=== PATIENT | female | born 1990 | race Caucasian/White ===

== ENCOUNTER 2017-11-13 15:19 | Emergency (ER) | payer BC ==
[~2017-11-13] VITALS: Ht 152.4 cm; Wt 89.7 kg
[2017-11-13 15:22] VITALS: TEMP 36.3; Ht 152.4 cm; Wt 89.7 kg
[2017-11-13] MEDS ORDERED: SODIUM CHLORIDE 0.9% 1000ML 1,000 ML IV STA (15:32)
[2017-11-13] MEDS ORDERED: KETOROLAC TROMETHAMINE 30 MG/ML VIAL IV STA (15:32)
[2017-11-13 15:59] LABS: BASO % 0.2 %; BASO ABS # 0.03 K/uL (0-0.2); EOS % 0.4 %; EOS ABS # 0.05 K/uL (0-0.5); HEMATOCRIT 41.9 % (37-47); HEMOGLOBIN 14.1 g/dL (12.0-16.0); IG# 0.06 K/uL (0.00-0.02); LYMPH % 27.9 %; LYMPH ABS # 3.36 K/uL (1.2-3.4); MEAN CELL VOLUME 79.4 fL (80-100); MEAN CORPUSCULAR HEMOGLOBIN 26.7 pg (25-34); MEAN CORPUSCULAR HGB CONC 33.7 g/dl (32-36); MEAN PLATELET VOLUME 9.4 fL (7.4-10.4); MONO % 7.1 %; MONO ABS # 0.85 K/uL (0.11-0.59); NEUT % 63.9 %; PLATELET COUNT 338 K/uL (130-400); RED CELL DISTRIBUTION WIDTH CV 13.7 % (11.5-14.5); RED CELL DISTRIBUTION WIDTH SD 38.9 fL (36.4-46.3); WHITE BLOOD COUNT 12.05 K/uL (4.8-10.8)
[2017-11-13 16:24] LABS: ALBUMIN 3.7 gm/dl (3.4-5.0); ALT/SGPT 24 U/L (12-78); BLOOD UREA NITROGEN 17 mg/dl (7-18); CARBON DIOXIDE 29 mmol/L (21-32); CREATININE 0.86 mg/dl (0.60-1.20); GLUCOSE 139 mg/dl (70-99); LIPASE 102 U/L (73-393); POTASSIUM 3.6 mmol/L (3.5-5.1); SODIUM 136 mmol/L (136-145)
[2017-11-13 16:26] LABS: ALKALINE PHOSPHATASE 111 U/L (45-117); AST/SGOT 17 U/L (15-37); TOTAL PROTEIN 8.9 gm/dl (6.4-8.2)
--- NOTE | 2017-11-13 17:22 | DIAGNOSTIC IMAGING REPORT ---
ABD/PELVIS NO IV OR ORAL CONT CLINICAL HISTORY: 27 years-old Female presenting with rlq/flank pain . TECHNIQUE: Multidetector CT of the abdomen and pelvis was performed without the use of intravenous contrast. IV contrast: None. A dose lowering technique was used consistent with the principles of ALARA (as low as reasonably achievable). COMPARISON: 10/04/2016. CT DOSE (mGy.cm): The estimated cumulative dose is 960.70 mGy.cm. FINDINGS: Postal Carrier topogram: Unremarkable. Lung bases: Lungs and pleural spaces clear. Normal heart size. No pericardial or pleural effusion. Liver: Normal morphology. Density borderline for hepatic steatosis. Biliary: No gross biliary ductal dilatation allowing for noncontrast technique. Gallbladder decompressed. Pancreas: Normal noncontrast appearance. Spleen: Normal noncontrast appearance. Adrenal glands: Normal noncontrast appearance. Kidneys and ureters: Normal parenchyma allowing for noncontrast technique. Multiple bilateral punctate renal calculi. Minimal pelvocaliectasis on the right with an obstructing 3 mm calculus at the right renal pelvis. The remainder of the right ureter is normal. No left hydronephrosis. Left ureter normal. Bladder: Normal. Pelvic organs: An intrauterine device is in place. Otherwise normal noncontrast appearance of the uterus and ovaries. Bowel: Normal appendix. No bowel obstruction. Peritoneal cavity: No free fluid or intraperitoneal gas. Lymph nodes: No gross lymphadenopathy allowing for noncontrast technique. Vasculature: Normal noncontrast appearance. Abdominal wall: Small fat-containing umbilical hernia. Musculoskeletal: Normal. IMPRESSION: 1. Obstructing 3 mm calculus at the right renal pelvis with resultant minimal right hydronephrosis. 2. Bilateral nephrolithiasis. 3. Borderline hepatic steatosis. Electronically signed by: Denton Prabhakar M.D. 11/13/2017 5:21 PM Dictated Date/Time: 11/13/2017 5:16 PM
[2017-11-13] MEDS ORDERED: OXYC-737 PO (18:02)
[2017-11-13] MEDS ORDERED: TAMS0.4C38 PO (18:02)
[2017-11-13 18:44] VITALS: BP 128/88; PULSE 74; O2SAT 99
[2017-11-13] MEDS ORDERED: TAMSULOSIN HCL 0.4 MG CAP PO ONE (18:45)
[2017-11-13] MEDS ORDERED: OXYCODONE IR HOME PACK PO ONE (18:45)
--- NOTE | 2017-11-13 20:36 | EMERGENCY ROOM VISIT NOTE ---
History Report prepared by Diego: Adelia Yanez Under the Supervision of: Hussein JacobO. First contact with patient: 15:26 Chief Complaint: FLANK PAIN Stated Complaint: PAIN IN R SIDE History of Present Illness The patient is a 27 year old female who presents to the Emergency Room with complaints of persistent right lower quadrant pain that began a few days ago. The patient states that she has nausea and diarrhea. He does describe the pain as a constant dullness. Nothing really improves her pain significantly worsens it. She describes her discomfort as similar to when she had kidney stones in the past. The patient states she took 2 Naproxen prior to arrival, which only relieved some of her discomfort. She notes she has an IUD in place. Pt denies headache, change in vision, fevers, chest pain, shortness of breath, vomiting, pain with urination, and melena. Patient denies diabetes, hypertension, hyperlipidemia, CAD, history of sudden at a young age, and smoking. Source of History: patient Onset: few days ago Position: abdomen (RLQ) Timing: other (persistent) Associated Symptoms: + nausea, + diarrhea Review of Systems See HPI for pertinent positives & negatives. A total of 10 systems reviewed and were otherwise negative. Family History Patient reports no known family medical history. Social History Smoking Status: Never Smoker Housing Status: lives with family Current/Historical Medications Scheduled Iud's (Paragard Intrauterine Application Operations Engineer), 1 EA INT UTER UD Tamsulosin Hcl (Flomax), 0.4 MG PO DAILY Scheduled PRN Ibuprofen Tab (Advil), 200 MG PO UD PRN for Pain Naproxen (Naprosyn), 250 MG PO UD PRN for Pain Oxycodone Immediate Rel Tab (Roxicodone Ir), 5 MG PO Q4H PRN for Severe Pain Allergies Coded Allergies: No Known Allergies (Unverified , 11/29/16) Physical Exam Vital Signs Date Time Temp Pulse Resp B/P (MAP) Pulse Ox O2 Delivery O2 Flow Rate FiO2 11/13/17 18:44 74 16 128/88 99 11/13/17 16:24 84 14 126/84 97 11/13/17 15:22 36.3 105 16 161/83 99 Room Air Physical Exam GENERAL: Sitting up in bed, alert, well appearing, well nourished, no distress, non-toxic EYE EXAM: normal conjunctiva. OROPHARYNX: no exudate, no erythema, lips, buccal mucosa, and tongue normal and mucous membranes are moist NECK: supple, no nuchal rigidity, no adenopathy, non-tender LUNGS: Clear to auscultation. Normal chest wall mechanics HEART: no murmurs, S1 normal and S2 normal ABDOMEN: Minimal tenderness in right lower quadrant. Abdomen soft, non-tender, normo-active bowel sounds, no masses, no rebound or guarding. BACK: Back is symmetrical on inspection and there is no deformity, no midline tenderness, no CVA tenderness. SKIN: no rashes and no bruising UPPER EXTREMITIES: upper extremities are grossly normal. LOWER EXTREMITIES: No pitting edema. NEURO EXAM: Normal sensorium, cranial nerves II-XII grossly intact, normal speech, no gross weakness of arms, no gross weakness of legs. Medical Decision & Procedures ER Provider Diagnostic Interpretation: Radiology results as stated below per my review and the radiologist's interpretation: ABD/PELVIS NO IV OR ORAL CONT CLINICAL HISTORY: 27 years-old Female presenting with rlq/flank pain . TECHNIQUE: Multidetector CT of the abdomen and pelvis was performed without the use of intravenous contrast. IV contrast: None. A dose lowering technique was used consistent with the principles of ALARA (as low as reasonably achievable). COMPARISON: 10/04/2016. CT DOSE (mGy.cm): The estimated cumulative dose is 960.70 mGy.cm. FINDINGS: Dials Inspector topogram: Unremarkable. Lung bases: Lungs and pleural spaces clear. Normal heart size. No pericardial or pleural effusion. Liver: Normal morphology. Density borderline for hepatic steatosis. Biliary: No gross biliary ductal dilatation allowing for noncontrast technique. Gallbladder decompressed. Pancreas: Normal noncontrast appearance. Spleen: Normal noncontrast appearance. Adrenal glands: Normal noncontrast appearance. Kidneys and ureters: Normal parenchyma allowing for noncontrast technique. Multiple bilateral punctate renal calculi. Minimal pelvocaliectasis on the right with an obstructing 3 mm calculus at the right renal pelvis. The remainder of the right ureter is normal. No left hydronephrosis. Left ureter normal. Bladder: Normal. Pelvic organs: An intrauterine device is in place. Otherwise normal noncontrast appearance of the uterus and ovaries. Bowel: Normal appendix. No bowel obstruction. Peritoneal cavity: No free fluid or intraperitoneal gas. Lymph nodes: No gross lymphadenopathy allowing for noncontrast technique. Vasculature: Normal noncontrast appearance. Abdominal wall: Small fat-containing umbilical hernia. Musculoskeletal: Normal. IMPRESSION: 1. Obstructing 3 mm calculus at the right renal pelvis with resultant minimal right hydronephrosis. 2. Bilateral nephrolithiasis. 3. Borderline hepatic steatosis. Electronically signed by: Denton Prabhakar M.D. 11/13/2017 5:21 PM Dictated Date/Time: 11/13/2017 5:16 PM Laboratory Results 11/13/17 15:45 Red Blood Count 5.28, Mean Corpuscular Volume 79.4, Mean Corpuscular Hemoglobin 26.7, Mean Corpuscular Hemoglobin Concent 33.7, Mean Platelet Volume 9.4, Neutrophils (%) (Auto) 63.9, Lymphocytes (%) (Auto) 27.9, Monocytes (%) (Auto) 7.1, Eosinophils (%) (Auto) 0.4, Basophils (%) (Auto) 0.2, Neutrophils # (Auto) 7.70, Lymphocytes # (Auto) 3.36, Monocytes # (Auto) 0.85, Eosinophils # (Auto) 0.05, Basophils # (Auto) 0.03 11/13/17 15:45 Test 11/13/17 00:00 11/13/17 15:45 Urine Color YELLOW Urine Appearance CLEAR (CLEAR) Urine pH 5.5 (4.5-7.5) Urine Specific [place] 1.024 (1.000-1.030) Urine Protein NEG (NEG) Urine Glucose (UA) NEG (NEG) Urine Ketones NEG (NEG) Urine Occult Blood 3+ (NEG) Urine Nitrite NEG (NEG) Urine Bilirubin NEG (NEG) Urine Urobilinogen NEG (NEG) Urine Leukocyte Esterase NEG (NEG) Urine WBC (Auto) 1-5 /hpf (0-5) Urine RBC (Auto) >30 /hpf (0-4) Urine Hyaline Casts (Auto) 0 /lpf (0-5) Urine Epithelial Cells (Auto) 20-30 /lpf (0-5) Urine Bacteria (Auto) NEG (NEG) Urine Test NEG (NEG) White Blood Count 12.05 K/uL (4.8-10.8) Red Blood Count 5.28 M/uL (4.2-5.4) Hemoglobin 14.1 g/dL (12.0-16.0) Hematocrit 41.9 % (37-47) Mean Corpuscular Volume 79.4 fL (80-100) Mean Corpuscular Hemoglobin 26.7 pg (25-34) Mean Corpuscular Hemoglobin Concent 33.7 g/dl (32-36) Platelet Count 338 K/uL (130-400) Mean Platelet Volume 9.4 fL (7.4-10.4) Neutrophils (%) (Auto) 63.9 % Lymphocytes (%) (Auto) 27.9 % Monocytes (%) (Auto) 7.1 % Eosinophils (%) (Auto) 0.4 % Basophils (%) (Auto) 0.2 % Neutrophils # (Auto) 7.70 K/uL (1.4-6.5) Lymphocytes # (Auto) 3.36 K/uL (1.2-3.4) Monocytes # (Auto) 0.85 K/uL (0.11-0.59) Eosinophils # (Auto) 0.05 K/uL (0-0.5) Basophils # (Auto) 0.03 K/uL (0-0.2) RDW Standard Deviation 38.9 fL (36.4-46.3) RDW Coefficient of Variation 13.7 % (11.5-14.5) Immature Granulocyte % (Auto) 0.5 % Immature Granulocyte # (Auto) 0.06 K/uL (0.00-0.02) Anion Gap 6.0 mmol/L (3-11) Est Creatinine Clear Calc Drug Dose 98.9 ml/min Estimated GFR () 108.1 Estimated GFR (Non- 93.2 BUN/Creatinine Ratio 19.2 (10-20) Calcium Level 9.0 mg/dl (8.5-10.1) Total Bilirubin 0.3 mg/dl (0.2-1) Direct Bilirubin < 0.1 mg/dl (0-0.2) Aspartate Amino Transf (AST/SGOT) 17 U/L (15-37) Alanine Aminotransferase (ALT/SGPT) 24 U/L (12-78) Alkaline Phosphatase 111 U/L (45-117) Total Protein 8.9 gm/dl (6.4-8.2) Albumin 3.7 gm/dl (3.4-5.0) Lipase 102 U/L (73-393) Laboratory results per my review. Medications Administered Medications (Trade) Dose Ordered Sig/Rosa Route Start Time Stop Time Status Last Admin Dose Admin Sodium Chloride 1,000 ml @ 999 mls/hr Q1H1M STAT IV 11/13/17 15:32 11/13/17 16:32 DC 11/13/17 15:46 999 MLS/HR Ketorolac Tromethamine (Toradol Inj) 15 mg NOW STAT IV 11/13/17 15:32 11/13/17 15:33 DC 11/13/17 15:46 15 MG Oxycodone HCl (Roxicodone Immediate Rel 5MG Home Pack) 1 homepack UD ONCE PO 11/13/17 18:45 11/13/17 18:46 DC 11/13/17 18:44 1 HOMEPACK Tamsulosin HCl (Flomax Cap) 0.8 mg NOW ONCE PO 11/13/17 18:45 11/13/17 18:46 DC 11/13/17 18:43 0.8 MG ED Course ED COURSE: Vital signs were reviewed and showed hypertensive and tachycardic. The patients medical record was reviewed The above diagnostic studies were performed and reviewed. ED treatments and interventions as stated above. 1528: The patient was evaluated in room B12. A complete history and physical examination was performed. 1532: Ordered Sodium Chloride 1000ml @ 999mls/hr IV and Toradol Inj 15mg IV. 1804: Upon reevaluation, the patient is resting comfortably.I discussed my findings with the patient and she understands and agrees with the treatment plan. Medical Decision Differential diagnosis: Etiologies such as appendicitis, diverticulitis, PUD, biliary pathology, UTI, pancreatitis, obstruction, mesenteric ischemia, aortic pathology, infections, inflammatory bowel disease, renal colic, as well as others were entertained. The patient is a 27 year old female who presents to the ED with complaints of abdominal pain. Pain is located in the right lower quadrant described as a dull pain. Mild leukocytosis. BMP all LFTs, bilirubin, lipase was unremarkable. Penicillin was negative. UA with blood. CT shows a 3 mm stone. Patient was updated bedside. She was discharged follow-up with PCP and urology as an outpatient with OxyIR and Flomax. Discussed with Pt concerning signs and symptoms to watch out for. Pt was instructed to follow up with their PCP and discussed with the patient their option to return to the ED at anytime for persistent or worsening symptoms. The appropriate anticipatory guidance and out-patient management, including indications for return to the emergency department, were explained at length to the patient and understood. [place] Drug Monitoring Program Search Results: patient reviewed within database, no issues identified Medication Reconcilliation Current Medication List: was personally reviewed by me Blood Pressure Screening Patient's blood pressure: Normal blood pressure Impression Primary Impression: Renal colic Scribe Attestation The scribe's documentation has been prepared under my direction and personally reviewed by me in its entirety. I confirm that the note above accurately reflects all work, treatment, procedures, and medical decision making performed by me. Departure Information Dispostion Home / Self-Care Prescriptions Tamsulosin Hcl (FLOMAX) 0.4 Mg Cap 0.4 MG PO DAILY, #10 CAP Prov: Tiburcio Larsen, DO 11/13/17 Oxycodone Immediate Rel Tab (ROXICODONE IR) 5 Mg Tab 5 MG PO Q4H Y for Severe Pain, #14 TAB Prov: Tiburcio Larsen, DO 11/13/17 Referrals No Doctor, Assigned (PCP) Forms HOME CARE DOCUMENTATION FORM, IMPORTANT VISIT INFORMATION Patient Instructions My [facility] Additional Instructions Please follow up with your primary care doctor with in the next 24 hours. Any worsening of your symptoms, please return to the ED immediately. This includes any fevers greater than 100.4, worsening pain, chest pain, shortness breath, persistent nausea, vomiting, unable to eat or drink, or any other concerning signs or symptoms from your standpoint. You were given medications during this visit that will inhibit your ability to drive, operate machinery and work. Please do NOT drive, operate machinery or work for the next 12hrs. You were also given a prescription for a narcotic. While taking this medication you should also not drive, operate machinery and or work. Again any fevers above 100.4 please return immediately to the ER.
[2017-12-02] MEDS ORDERED: NAPR1TAB48 PO (10:53)
[2017-12-02] MEDS ORDERED: OXYC-737 PO (20:42)
== END 2017-11-13 18:47 | disposition home or self-care (01) ==
LOC: C.EDB 15:20
DX: N23 Unspecified renal colic (principal)

== ENCOUNTER 2017-12-02 14:51 | Emergency (ER) | payer BC ==
[~2017-12-02] VITALS: Ht 152.4 cm; Wt 89.0 kg
[~2017-12-02 14:51] MED LIST: NAPR1TAB48 PO; OXYC1TAB3 PO
[2017-12-02 14:56] VITALS: TEMP 36.4; Ht 152.4 cm; Wt 89.0 kg
[2017-12-02] MEDS ORDERED: IUD'IUD INT UTER (15:55)
[2017-12-02] MEDS ORDERED: IBUP-103 PO (15:55)
[2017-12-02] MEDS ORDERED: TAMS0.4C38 PO ×2 (18:38→20:42)
[2017-12-02 19:13] LABS: BASO % 0.1 %; BASO ABS # 0.02 K/uL (0-0.2); HEMATOCRIT 39.1 % (37-47); HEMOGLOBIN 13.6 g/dL (12.0-16.0); IG# 0.07 K/uL (0.00-0.02); LYMPH % 6.6 %; LYMPH ABS # 1.23 K/uL (1.2-3.4); MEAN CELL VOLUME 77.3 fL (80-100); MEAN CORPUSCULAR HEMOGLOBIN 26.9 pg (25-34); MEAN CORPUSCULAR HGB CONC 34.8 g/dl (32-36); MEAN PLATELET VOLUME 9.1 fL (7.4-10.4); MONO % 1.7 %; MONO ABS # 0.31 K/uL (0.11-0.59); NEUT % 91.2 %; NEUT ABS # 16.97 K/uL (1.4-6.5); PLATELET COUNT 302 K/uL (130-400); RED CELL DISTRIBUTION WIDTH CV 13.6 % (11.5-14.5); RED CELL DISTRIBUTION WIDTH SD 38.1 fL (36.4-46.3)
[2017-12-02 19:32] LABS: ALBUMIN 3.7 gm/dl (3.4-5.0); ALT/SGPT 39 U/L (12-78); BLOOD UREA NITROGEN 15 mg/dl (7-18); CARBON DIOXIDE 22 mmol/L (21-32); CREATININE 1.01 mg/dl (0.60-1.20); GLUCOSE 103 mg/dl (70-99); LIPASE 118 U/L (73-393); POTASSIUM 3.4 mmol/L (3.5-5.1); SODIUM 137 mmol/L (136-145)
[2017-12-02 19:36] LABS: ALKALINE PHOSPHATASE 84 U/L (45-117); AST/SGOT 26 U/L (15-37); TOTAL PROTEIN 8.5 gm/dl (6.4-8.2)
--- NOTE | 2017-12-02 19:40 | DIAGNOSTIC IMAGING REPORT ---
ULTRASOUND KIDNEYS AND BLADDER CLINICAL HISTORY: Right flank pain. COMPARISON STUDY: Abdominal CT dated 11/13/2017. TECHNIQUE: Real-time, grayscale, and color flow sonography of the kidneys and bladder is performed. Images are reviewed in the transverse and longitudinal planes. FINDINGS: Kidneys: The kidneys are normal in size and echotexture. The right kidney measures 10.9 cm in length and the left kidney measures 10.4 cm in length. There is no hydronephrosis. No shadowing renal calculi are identified. There is no sonographic evidence of contour deforming renal mass lesion. No perinephric fluid is identified. Bladder: The bladder is normal in appearance. Bilateral ureteral jets were seen. IMPRESSION: Unremarkable sonographic assessment of the kidneys and bladder. Electronically signed by: Tin Dockery M.D. 12/02/2017 7:38 PM Dictated Date/Time: 12/02/2017 7:38 PM
[2017-12-02] MEDS ORDERED: KETOROLAC TROMETHAMINE 30 MG/ML VIAL IV STA (19:54)
[2017-12-02] MEDS ORDERED: ONDANSETRON INJ 2 MG/ML 2 ML VIAL IV STA (19:54)
[2017-12-02] MEDS ORDERED: ONDA4TAB10 SL (20:42)
[2017-12-02] MEDS ORDERED: OXYC1TAB3 PO (20:42)
--- NOTE | 2017-12-02 20:43 | EMERGENCY ROOM VISIT NOTE ---
History First contact with patient: 18:32 Chief Complaint: KIDNEY STONE Stated Complaint: KIDNEY STONE, NAUSEA/VOMITING, CANNOT URINATE History of Present Illness The patient is a 27 year old female who presents to the Emergency Room with complaints of right flank pain. The patient states that she had acute onset of right flank pain which started at 12:30 today. The patient also admits to associated nausea or vomiting. She also states she could only passed small amounts of urine. She also noted some blood in her urine. The patient took a oxycodone prior to arrival which took the edge off. She was still having pain in the emergency room but had a long wait and she thinks she passed a stone 30 minutes ago when she went to the bathroom. The patient now still has dull slight pain in the right lower quadrant. She currently denies any nausea or vomiting. The patient states after she was in the emergency room in September she passed the stone and follow that with Dr. Ferrara. Review of Systems 10 system review was performed and was negative unless stated otherwise history of present illness. Past Medical/Surgical History Kidney stones, Family History Patient reports no known family medical history. Social History Smoking Status: Never Smoker Alcohol Use: occasionally Drug Use: none Marital Status: single Housing Status: lives with significant other Occupation Status: unemployed Current/Historical Medications Scheduled Iud's (Paragard Intrauterine Immunologist), 1 EA INT UTER UD Scheduled PRN Ibuprofen Tab (Advil), 200 MG PO UD PRN for Pain Naproxen (Naprosyn), 250 MG PO UD PRN for Pain Oxycodone Immediate Rel Tab (Roxicodone Ir), 5 MG PO Q4H PRN for Severe Pain Tamsulosin Hcl (Flomax), 0.4 MG PO DAILY PRN for Kidney Stone Physical Exam Vital Signs Date Time Temp Pulse Resp B/P (MAP) Pulse Ox O2 Delivery O2 Flow Rate FiO2 12/02/17 18:44 81 16 159/79 99 Room Air 12/02/17 14:56 36.4 69 18 140/92 100 Physical Exam GENERAL: 27 year white female appears in no acute distress. MENTAL Status: Alert and oriented 3. MOUTH: Mucosa is moist NECK: Supple, no lymphadenopathy noted. No carotid bruits noted. LUNGS: Clear auscultation without wheezes rales or rhonchi. CARDIAC: Regular rate and rhythm without murmur. Pulses is full and equal throughout. BACK: No CVA tenderness noted. ABDOMEN: Positive bowel sounds all 4 quadrants. Soft, mild tenderness palpation of right lower quadrant otherwise nontender to palpation without organomegaly or masses. EXTREMITIES: No cyanosis or edema noted. Medical Decision & Procedures ER Provider Diagnostic Interpretation: Patient Name: COLT RASCON Unit Number: [id number] Dictated: 12/02/171937 Transcribed: 12/02/171937 EV Printed Date/Time: [~ rep prt dt]/[~ rep prt tm] [~ rep ct labl] - [~ rep ct ivnm] [facility] [place] [address] Dictated: 12/02/171937 Transcribed: 12/02/171937 EV Printed Date/Time: [~ rep prt dt]/[~ rep prt tm] [~ rep ct labl] - [~ rep ct ivnm] ULTRASOUND KIDNEYS AND BLADDER CLINICAL HISTORY: Right flank pain. COMPARISON STUDY: Abdominal CT dated 11/13/2017. TECHNIQUE: Real-time, grayscale, and color flow sonography of the kidneys and bladder is performed. Images are reviewed in the transverse and longitudinal planes. FINDINGS: Kidneys: The kidneys are normal in size and echotexture. The right kidney measures 10.9 cm in length and the left kidney measures 10.4 cm in length. There is no hydronephrosis. No shadowing renal calculi are identified. There is no sonographic evidence of contour deforming renal mass lesion. No perinephric fluid is identified. Bladder: The bladder is normal in appearance. Bilateral ureteral jets were seen. IMPRESSION: Unremarkable sonographic assessment of the kidneys and bladder. Electronically signed by: Tin Dockery M.D. 12/02/2017 7:38 PM Dictated Date/Time: 12/02/2017 7:38 PM The status of this report is Signed. Draft = Not yet reviewed or approved by Radiologist. Signed = Reviewed and approved by Radiologist. <AttendingPhy></AttendingPhy> <FamilyPhy>Fabby Raza D.O.</FamilyPhy> < PrimaryPhy>Fabby Raza D.O.</PrimaryPhy> <UnitNumber>[id number]</UnitNumber> <VisitNumber>[id number]</VisitNumber> <PatientName>COLT RASCON</ PatientName> <DateOfBirth>1990</DateOfBirth> <Location>[facility]</Location> < ServiceDate>12/02/17</ServiceDate> <MNE>ESINDI</MNE> <OrderingPhy>Kelli Vega PA-C</OrderingPhy> <OrderingPhyMNE>f rep ord dr yousif</OrderingPhyMNE> < DictatingPhyMNE>f rep dict dr yousif</DictatingPhyMNE> <CCListMNE>f rep ct mne</ CCListMNE> <AdmittingPhyMNE>f pt admit dr yousif</AdmittingPhyMNE> <AttendingPhyMNE >f pt attend dr yousif</AttendingPhyMNE> <ConsultingPhyMNE>f pt consult dr yousif</ConsultingPhyMNE> <FamilyPhyMNE>f pt fam dr yousif</FamilyPhyMNE> <OtherPhyMNE>f pt other dr yousfi</OtherPhyMNE> < PrimaryPhyMNE>f pt prim care dr yousif</PrimaryPhyMNE> <ReferringPhyMNE>f pt referring dr yousif</ReferringPhyMNE> Laboratory Results 12/02/17 19:00 Red Blood Count 5.06, Mean Corpuscular Volume 77.3, Mean Corpuscular Hemoglobin 26.9, Mean Corpuscular Hemoglobin Concent 34.8, Mean Platelet Volume 9.1, Neutrophils (%) (Auto) 91.2, Lymphocytes (%) (Auto) 6.6, Monocytes (%) (Auto) 1.7, Eosinophils (%) (Auto) 0.0, Basophils (%) (Auto) 0.1, Neutrophils # (Auto) 16.97, Lymphocytes # (Auto) 1.23, Monocytes # (Auto) 0.31, Eosinophils # (Auto) 0.00, Basophils # (Auto) 0.02 12/02/17 19:00 Test 12/02/17 18:50 12/02/17 19:00 Urine Color YELLOW Urine Appearance CLEAR (CLEAR) Urine pH 7.0 (4.5-7.5) Urine Specific [place] 1.014 (1.000-1.030) Urine Protein NEG (NEG) Urine Glucose (UA) NEG (NEG) Urine Ketones 1+ (NEG) Urine Occult Blood 2+ (NEG) Urine Nitrite NEG (NEG) Urine Bilirubin NEG (NEG) Urine Urobilinogen NEG (NEG) Urine Leukocyte Esterase NEG (NEG) Urine WBC (Auto) 1-5 /hpf (0-5) Urine RBC (Auto) >30 /hpf (0-4) Urine Hyaline Casts (Auto) 1-5 /lpf (0-5) Urine Epithelial Cells (Auto) 5-10 /lpf (0-5) Urine Bacteria (Auto) NEG (NEG) White Blood Count 18.60 K/uL (4.8-10.8) Red Blood Count 5.06 M/uL (4.2-5.4) Hemoglobin 13.6 g/dL (12.0-16.0) Hematocrit 39.1 % (37-47) Mean Corpuscular Volume 77.3 fL (80-100) Mean Corpuscular Hemoglobin 26.9 pg (25-34) Mean Corpuscular Hemoglobin Concent 34.8 g/dl (32-36) Platelet Count 302 K/uL (130-400) Mean Platelet Volume 9.1 fL (7.4-10.4) Neutrophils (%) (Auto) 91.2 % Lymphocytes (%) (Auto) 6.6 % Monocytes (%) (Auto) 1.7 % Eosinophils (%) (Auto) 0.0 % Basophils (%) (Auto) 0.1 % Neutrophils # (Auto) 16.97 K/uL (1.4-6.5) Lymphocytes # (Auto) 1.23 K/uL (1.2-3.4) Monocytes # (Auto) 0.31 K/uL (0.11-0.59) Eosinophils # (Auto) 0.00 K/uL (0-0.5) Basophils # (Auto) 0.02 K/uL (0-0.2) RDW Standard Deviation 38.1 fL (36.4-46.3) RDW Coefficient of Variation 13.6 % (11.5-14.5) Immature Granulocyte % (Auto) 0.4 % Immature Granulocyte # (Auto) 0.07 K/uL (0.00-0.02) Anion Gap 11.0 mmol/L (3-11) Est Creatinine Clear Calc Drug Dose 83.8 ml/min Estimated GFR () 89.0 Estimated GFR (Non- 76.8 BUN/Creatinine Ratio 14.4 (10-20) Calcium Level 9.0 mg/dl (8.5-10.1) Total Bilirubin 0.4 mg/dl (0.2-1) Direct Bilirubin < 0.1 mg/dl (0-0.2) Aspartate Amino Transf (AST/SGOT) 26 U/L (15-37) Alanine Aminotransferase (ALT/SGPT) 39 U/L (12-78) Alkaline Phosphatase 84 U/L (45-117) Total Protein 8.5 gm/dl (6.4-8.2) Albumin 3.7 gm/dl (3.4-5.0) Lipase 118 U/L (73-393) Medications Administered Medications (Trade) Dose Ordered Sig/Rosa Route Start Time Stop Time Status Last Admin Dose Admin Ketorolac Tromethamine (Toradol Inj) 30 mg NOW STAT IV 12/02/17 19:54 12/02/17 19:56 DC 12/02/17 20:10 30 MG Ondansetron HCl (Zofran Inj) 4 mg NOW STAT IV 12/02/17 19:54 12/02/17 19:56 DC 12/02/17 20:10 4 MG ED Course The patient was evaluated. The patient's EMR medication list were reviewed. IV access was obtained. CBC differential, renal profile, LFTs and lipase levels were ordered. Urinalysis was ordered. Renal ultrasound was ordered and interpreted by the radiologist as above without any significant findings. The patient was reevaluated. The patient was starting to get pain again and nauseated therefore she was given Toradol 30 mg IV and Zofran 4 mg IV push. Labs are reviewed. The patient's white count was elevated 18,000 otherwise labs are unremarkable. Urinalysis was negative. The patient was reevaluated was feeling better. The patient was discharged home with a Zofran home pack and a oxy ir home pack. Medical Decision Differential diagnoses include UTI, pyelonephritis, renal colic, kidney stone [place] Drug Monitoring Program Search Results: patient reviewed within database Medication Reconcilliation Current Medication List: was personally reviewed by me Blood Pressure Screening Patient's blood pressure: Normal blood pressure Impression Primary Impression: Right flank pain Departure Information Dispostion Home / Self-Care Condition GOOD Prescriptions Oxycodone Immediate Rel Tab (ROXICODONE IR) 5 Mg Tab 1-2 TAB PO Q4H Y for Pain, #14 TAB Prov: Kelli Vega PA-C 12/02/17 Ondasetron Odt (ZOFRAN ODT) 4 Mg Tab 4 MG SL Q6H for Nausea, #10 TAB Prov: Kelli Vega PA-C 12/02/17 Tamsulosin Hcl (FLOMAX) 0.4 Mg Cap 0.4 MG PO DAILY for 7 Days, #7 CAP Prov: Kelli Vega PA-C 12/02/17 Referrals Fabby Raza D.O. (PCP) Forms HOME CARE DOCUMENTATION FORM, IMPORTANT VISIT INFORMATION Patient Instructions Kidney Stones - [facility], [facility] Additional Instructions Ibuprofen 600 mg every 6 hours with food for pain. Take OxyIR as needed for more severe pain. Do not drive while taking the OxyIR. Take Zofran as needed for nausea. Push fluids. Strain all urine. Take Flomax daily as prescribed. If symptoms persist, follow-up with Dr. Ferrara. If symptoms worsen in the interim, return to ER.
[2017-12-02] MEDS ORDERED: ONDANSETRON HOME PACK 4MG OD TAB PO ONE (20:45)
[2017-12-02] MEDS ORDERED: OXYCODONE IR HOME PACK PO ONE (20:45)
[2017-12-02 21:22] VITALS: BP 125/64; PULSE 77; O2SAT 100
== END 2017-12-02 21:23 | disposition home or self-care (01) ==
LOC: C.EDB 14:52 → C.EDA 21:23
DX: R10.31 Right lower quadrant pain (principal); R11.2 Nausea with vomiting, unspecified

== ENCOUNTER 2025-09-09 20:02 | Observation (INO) ==
--- NOTE | 2025-09-09 20:38 | Emergency Department Note ---
Impression & Plan Renal colic, Kidney stone, Hydronephrosis, Vomiting ED Provider Note NAME: COLT RASCON AGE: 35 SEX: F : 1990 ARRIVES VIA: Walk-In INFORMANT: Patient ED PROVIDER(S): Tiburcio Larsen DO CHIEF COMPLAINT: Flank pain HPI: Patient is a 35-year-old female with a past medical history of asthma who presents to the ER for left flank pain. She notes she does have a history of kidney stones as well and this feels similar. Starts in the left back and radiates to the abdomen. Associate with nausea and vomiting. Severe in nature. Denies any headache or change in vision. No chest pain or shortness of breath. No dysuria, urgency or frequency. No fevers. No other exacerbating or remitting factors. ADDITIONAL HISTORY OBTAINED: Per HPI Chronic Medical/Social Conditions Affecting Care: Per HPI PAST MEDICAL HISTORY:See Below PAST SURGICAL HISTORY:See Below FAMILY HISTORY:See Below SOCIAL HISTORY:See Below HOME MEDICATIONS:See Below ALLERGIES:See Below VITALS:See Below PHYSICAL EXAMINATION: GENERAL: Sitting up in bed, alert, well appearing, well nourished, no distress, non-toxic EYE EXAM: normal conjunctiva. PERRL and EOM's grossly intact. OROPHARYNX: no exudate, no erythema, lips, buccal mucosa, and tongue normal and mucous membranes are moist NECK: supple, no nuchal rigidity, no adenopathy, non-tender LUNGS: Clear to auscultation. Normal chest wall mechanics HEART: no murmurs, S1 normal and S2 normal ABDOMEN: abdomen soft, non-tender, normo-active bowel sounds, no masses, no rebound or guarding. BACK: Back is symmetrical on inspection and there is no deformity, no midline tenderness, no CVA tenderness. UPPER EXTREMITIES: upper extremities are grossly normal. LOWER EXTREMITIES: No pitting edema. NEURO EXAM: Normal sensorium, cranial nerves II-XII grossly intact, normal speech, no gross weakness of arms, no gross weakness of legs. MEDICAL DECISION MAKING: Patient is a 35-year-old female who presents ER for the above-stated complaint. IV was established and blood work is obtained. Labs show mild leukocytosis 13,000. No significant anemia. BMP normal LFTs bilirubin and lipase is unremarkable. UA was contaminated. CT shows a 4 mm proximal UPJ stone. She was given multiple dose of IV narcotics as well as antiemetics and was still having pain and consequently was discussed with the hospitalist for further evaluation management treatment. Consults/Care Managements Discussions: Per MDM Triage Nursing notes reviewed. Limited review of prior medical records performed Vital Signs: reviewed and remarkable for HTN Differential diagnosis: Differential diagnoses includes but is not limited to gastritis, peptic ulcer disease, GERD, gallbladder disease, pancreatitis, small bowel obstruction, appendicitis, diverticulitis, hernia, urinary tract infection, torsion, /ectopic (if female), perforation, trauma, infectious. ER treatment provided: See below Diagnostics interpreted by me include EKG and cardiac monitoring as listed below: -Cardiac Monitoring: An order was placed for continuous cardiac monitoring. The monitor shows a rate of 80 with sinus rhythm. -ECG: none -Laboratory studies:Interpreted by me as stated above in MDM and shown below. 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 Top only Family History (Updated 10/05/24 @ 14:19 by Caitlin Viera RN) Aunt Cancer Grandfather Diabetes Heart disease Hypertension Grandmother Diabetes Heart disease Hypertension Mother Hypertension Social History (Updated 10/05/24 @ 14:21 by Caitlin Viera RN) Smoking Status: Never smoker Hx Alcohol Use: Yes Alcohol Intake Frequency: 2-4 x/Month Hx Substance Use: Yes Prescribed Medications: Marijuana Preferred Language: Belgian marital status: Single current occupational status: employed current occupation: Childcare How many Children do You have: 0 Feels Safe at Home: Yes during the past year weight has: remained stable Allergies Allergies Allergy/AdvReac Type Severity Reaction Status Date / Time No Known Allergies Allergy Unverified 10/05/24 10:38 Home Meds Home Medications Medication Instructions Recorded Confirmed levonorgestrel 14 mcg/24 hr (up to 1 dose intrauterine UD 09/21/18 09/21/18 3 yrs) 13.5 mg intrauterine device (Meena) Previous Rx's Medication Instructions Recorded ondansetron HCl 4 mg tablet 4 mg PO Q6H #14 tabs 09/18/18 (Zofran) oxycodone 5 mg tablet 5 mg PO Q6H PRN pain #14 tabs 09/18/18 tamsulosin 0.4 mg capsule (Flomax) 0.4 mg PO DAILY #10 caps 09/18/18 Results & Data (ED) Vital Signs Vital Signs - 24 hr 09/09/25 20:14 09/09/25 21:31 09/09/25 22:31 Temperature 36.6 C Temperature Source Oral Pulse Rate 86 Pulse Rate [Finger] 84 74 Respiratory Rate 18 18 16 Respiratory Effort / Characteristics Non-Labored Spontaneous Respiratory Depth Normal Respiratory Pattern Regular Blood Pressure 163/107 H Blood Pressure [Left Arm] 154/104 H 152/111 H Blood Pressure Mean 125 Blood Pressure Mean [Left Arm] 120 124 Blood Pressure Position Sitting Pulse Oximetry 100 100 99 Oxygen Delivery Method Room Air Room Air Room Air Sepsis Recent Fever Within 48 Hours No Sepsis New/Unexplained Change in Mental Status No Sepsis Action Taken by Nursing No Action Required Laboratory Data 09/09/25 20:51 09/09/25 20:51 Lab Results 09/09/25 09/09/25 09/09/25 Range/Units 20:42 20:51 Unknown WBC 13.11 H (4.8-10.8) K/ul RBC 5.89 H (4.20-5.40) M/uL Hgb 15.7 (12.0-16.0) g/dl Hct 49.1 H (37.0-47.0) % MCV 83.4 (80.0-100.0) fL MCH 26.7 (25.0-34.0) pg MCHC 32.0 (32.0-36.0) g/dL RDW Std Deviation 40.8 (36.4-46.3) fL RDW Coeff of [place] 13.6 (11.5-14.5) % Plt Count 326 (130-400) K/uL MPV 9.8 (9.4-12.4) fL Immature Gran % (Auto) 0.4 % Neut % (Auto) 83.0 % Lymph % (Auto) 11.9 % Todd % (Auto) 4.2 % Eos % (Auto) 0.2 % Baso % (Auto) 0.3 % Neut # (Auto) 10.88 H (1.40-6.50) K/uL Lymph # (Auto) 1.56 (1.20-3.40) K/uL Todd # (Auto) 0.55 (0.11-0.59) K/uL Eos # (Auto) 0.03 (0.00-0.50) K/uL Baso # (Auto) 0.04 (0.00-0.20) K/uL Immature Gran # (Auto) 0.05 (0.01-0.20) K/uL Platelet Estimate Normal (Normal) Sodium 135 L (136-145) mmol/L Potassium 3.9 (3.5-5.1) mmol/L Chloride 103 (98-107) mmol/L Carbon Dioxide 26 (21-32) mmol/L Anion Gap 6 (3-11) BUN 14 (6-23) mg/dl Creatinine 0.86 (0.6-1.2) mg/dl Est Cr Clr Drug Dosing 92.7 ml/min eGFR 90.86 BUN/Creatinine Ratio 16.3 (10-20) Glucose 110 H (70-99(Fasting)) mg/dl Calcium 9.3 (8.6-10.3) mg/dl Total Bilirubin 0.3 (0.2-1.0) mg/dl AST 19 (13-39) U/L ALT 24 (7-52) U/L Alkaline Phosphatase 104 (34-104) U/L Total Protein 8.5 H (6.0-8.3) gm/dl Albumin 4.1 (3.4-5.0) gm/dl Globulin 4.4 H (2.5-4.0) gm/dl Albumin/Globulin Ratio 0.9 (0.9-2) Lipase 23 (11-82) U/L Urine Color [place] Urine Appearance Cloudy A (Clear) Urine pH 5.0 (4.5-7.5) Ur Specific [place] 1.023 (1.000-1.030) Urine Protein 2+ H (Negative) Urine Glucose (UA) Negative (Negative) Urine Ketones Negative (Negative) Urine Blood 3+ H (Negative) Urine Nitrite Negative (Negative) Urine Bilirubin Negative (Negative) Urine Urobilinogen Negative (Negative) Ur Leukocyte Esterase Trace H (Negative) Urine WBC (Auto) 6-10 H (0-5) /hpf Urine RBC (Auto) >20 H (0-2) /hpf U Hyaline Cast (Auto) 3-5 H (0-2) /lpf U Epithel Cells (Auto) 3-5 H (0-2) /hpf Urine Bacteria (Auto) None Seen (None Seen) Urine Test Negative (Negative) Urine Comment Administered Medications Discontinued Medications Sodium Chloride (Nss) 1,000 mls @ 999 mls/hr IV .Q1H1M ONE Stop: 09/09/25 21:19 Last Infusion: 09/09/25 22:11 Dose: Infused Documented By: Admin: 09/09/25 20:53 Dose: 999 mls/hr Documented By: Ketorolac Tromethamine (Ketorolac Tromethamine 15 Mg/Ml Vial) 15 mg IV NOW ONE Stop: 09/09/25 20:39 Last Admin: 09/09/25 20:53 Dose: 15 mg Documented By: Morphine Sulfate (Morphine Sulfate 4 Mg/Ml 1 Ml Carp\Vial) 4 mg IV NOW STA Stop: 09/09/25 20:39 Last Admin: 09/09/25 20:53 Dose: 4 mg Documented By: Morphine Sulfate (Morphine Sulfate 10 Mg/Ml Carp/Vial) 6 mg IV NOW STA Stop: 09/09/25 21:55 Last Admin: 09/09/25 22:09 Dose: 6 mg Documented By: Ondansetron HCl (Ondansetron Inj 2 Mg/Ml 2 Ml Vial) 4 mg IV NOW STA Stop: 09/09/25 20:44 Last Admin: 09/09/25 20:53 Dose: 4 mg Documented By: Ondansetron HCl (Ondansetron Inj 2 Mg/Ml 2 Ml Vial) 4 mg IV NOW STA Stop: 09/09/25 21:55 Last Admin: 09/09/25 22:09 Dose: 4 mg Documented By: Imaging Data Radiologist's Impression: Abdomen/Pelvis CT 09/09/25 20:19 Exam(s): CT ABDOMEN + PELVIS Without Contrast EXAM: CT Abdomen and Pelvis Without Intravenous Contrast CLINICAL HISTORY: Reason for exam: flank pain. TECHNIQUE: Axial computed tomography images of the abdomen and pelvis without intravenous contrast. CTDI is 27.44 mGy and DLP is 1174.04 mGy-cm. Automated exposure control was utilized for the study. A dose lowering technique was utilized adhering to the principles of ALARA. COMPARISON: CT September 21, 2018 FINDINGS: ABDOMEN: Liver: Unremarkable. Gallbladder and bile ducts: Unremarkable. Pancreas: Unremarkable. Spleen: Unremarkable. Adrenals: Unremarkable. Kidneys and ureters: Stone at the left UPJ measuring 4 mm causing mild left-sided hydronephrosis. Multiple nephrolithiasis in the kidneys bilaterally. Stomach and bowel: Unremarkable. PELVIS: Appendix: No findings to suggest acute appendicitis. Bladder: Unremarkable. Reproductive: IUD within the uterus. ABDOMEN and PELVIS: Intraperitoneal space: Unremarkable. No free air. No significant fluid collection. Bones/joints: No acute fracture. Soft tissues: Unremarkable. Vasculature: Unremarkable. Lymph nodes: Unremarkable. IMPRESSION: Stone at the left UPJ measuring 4 mm causing mild left-sided hydronephrosis. Electronically signed by: Lennox Perez MD 09/09/25 21:08 PM Discharge Plan Visit Data Chief Complaint: Kidney Stone Stated Complaint: POSS KIDNEY STONE, NAUSEA, VOMITING, FLANK PAIN ED Provider: Tiburcio Larsen Discharge Problem: Renal colic, Kidney stone, Hydronephrosis, Vomiting Condition: Fair Forms Stand Alone Forms: TeleFlip Prescriptions Prescriptions: No Action ondansetron HCl [Zofran] 4 mg tablet 4 mg PO Q6H Qty: 14 0RF tamsulosin [Flomax] 0.4 mg capsule 0.4 mg PO DAILY Qty: 10 0RF oxycodone 5 mg tablet 5 mg PO Q6H PRN (Reason: pain) Qty: 14 0RF levonorgestrel [Meena] 14 mcg/24 hour (3 years) Intrauterine Device 1 dose Intrauterine UD Referrals Referrals: Munir Nunez MD [Primary Care Provider] - Discharge Problem: Hydronephrosis Qualifiers: Hydronephrosis type: unspecified Qualified Code(s): N13.30 - Unspecified hydronephrosis Vomiting Qualifiers: Vomiting type: unspecified Nausea presence: unspecified Qualified Code(s): R 11.10 - Vomiting, unspecified
[2025-09-09] MEDS: SODIUM CHLORIDE 0.9% 1,000 ML IV ONE (20:53)
[2025-09-09] MEDS: ONDANSETRON INJ 2 MG/ML 2 ML VIAL IV STA ×2 (20:53→22:09)
[2025-09-09] MEDS: KETOROLAC TROMETHAMINE 15 MG/ML VIAL IV ONE (20:53)
[2025-09-09] MEDS: MoRPHine SULFATE 4 MG/ML 1 ML CARP\\VIAL IV STA (20:53)
[2025-09-09 20:57] LABS: Appearance Urine Cloudy (Clear); Bacteria Urine Automated None Seen (None Seen); Glucose Urine UA Negative (Negative); RBC Urine Automated >20 /hpf (0-2)
--- NOTE | 2025-09-09 21:09 | CT Scan Report ---
Exam(s): CT ABDOMEN + PELVIS Without Contrast EXAM: CT Abdomen and Pelvis Without Intravenous Contrast CLINICAL HISTORY: Reason for exam: flank pain. TECHNIQUE: Axial computed tomography images of the abdomen and pelvis without intravenous contrast. CTDI is 27.44 mGy and DLP is 1174.04 mGy-cm. Automated exposure control was utilized for the study. A dose lowering technique was utilized adhering to the principles of ALARA. COMPARISON: CT September 21, 2018 FINDINGS: ABDOMEN: Liver: Unremarkable. Gallbladder and bile ducts: Unremarkable. Pancreas: Unremarkable. Spleen: Unremarkable. Adrenals: Unremarkable. Kidneys and ureters: Stone at the left UPJ measuring 4 mm causing mild left-sided hydronephrosis. Multiple nephrolithiasis in the kidneys bilaterally. Stomach and bowel: Unremarkable. PELVIS: Appendix: No findings to suggest acute appendicitis. Bladder: Unremarkable. Reproductive: IUD within the uterus. ABDOMEN and PELVIS: Intraperitoneal space: Unremarkable. No free air. No significant fluid collection. Bones/joints: No acute fracture. Soft tissues: Unremarkable. Vasculature: Unremarkable. Lymph nodes: Unremarkable. IMPRESSION: Stone at the left UPJ measuring 4 mm causing mild left-sided hydronephrosis. Electronically signed by: Lennox Perez MD 09/09/25 21:08 PM
[2025-09-09 21:34] LABS: Alanine Aminotransferase 24.0 U/L (7-52); Albumin Globulin Ratio 0.9 (0.9-2); Albumin Level 4.1 gm/dl (3.4-5.0); Alkaline Phosphatase 104.0 U/L (34-104); Anion Gap 6.0 (3-11); Bilirubin,Total 0.3 mg/dl (0.2-1.0); Blood Urea Nitrogen 14.0 mg/dl (6-23); Calcium 9.3 mg/dl (8.6-10.3); Carbon Dioxide 26.0 mmol/L (21-32); Chloride 103.0 mmol/L (98-107); Creatinine Clr Calc Pharmacy 92.7 ml/min; Globulin 4.4 gm/dl (2.5-4.0); Glucose 110.0 mg/dl (70-99(Fasting)); Lipase 23.0 U/L (11-82); Potassium 3.9 mmol/L (3.5-5.1); Sodium 135.0 mmol/L (136-145); Total Protein 8.5 gm/dl (6.0-8.3)
[2025-09-09 21:55] LABS: Hematocrit (blood only) 49.1 % (37.0-47.0); Hemoglobin 15.7 g/dl (12.0-16.0); Mean Corpuscular Hemoglobin 26.7 pg (25.0-34.0); Mean Corpuscular Volume 83.4 fL (80.0-100.0); RDW Standard Deviation 40.8 fL (36.4-46.3); Red Blood Count 5.89 M/uL (4.20-5.40); White Blood Count 13.11 K/ul (4.8-10.8)
[2025-09-09] MEDS: MoRPHine SULFATE 10 MG/ML CARP/VIAL IV STA (22:09)
[2025-09-09 22:21] LABS: Platelet Count 326 K/uL (130-400)
[2025-09-09 22:22] LABS: Immature Granulocytes # (auto) 0.05 K/uL (0.01-0.20); Immature Granulocytes % (auto) 0.4 %
[2025-09-10 00:59] LABS: Appearance Urine Clear (Clear); Bacteria Urine Automated None Seen (None Seen); Cast Urine Automated 0-2 /lpf (0-2); Epithelial Cell Urine Auto 0-2 /hpf (0-2); Glucose Urine UA Negative (Negative); RBC Urine Automated >20 /hpf (0-2)
--- NOTE | 2025-09-10 01:03 | History & Physical Report ---
Date of Service September 10, 2025 Assessment & Plan (1) Renal colic on left side: Plan: 35-year-old female with past medical history significant for mild intermittent asthma, obesity, calcium oxalate renal calculi, depression, seasonal allergies presents with left flank pain and found to have left renal stone. Patient says pain started around evening on and off severe in nature. Associated with nausea and vomiting which brought her to the ER. Denies any burning micturition. No fevers. No chest pain or shortness of breath. No cough. No headache. No runny nose or sore throat. Hemodynamics are okay. Left renal colic CT scan showing stone at the left UPJ measuring 4 mm causing mild left-sided hydronephrosis History of nephrolithiasis with calcium oxalate stones and was on hydrochlorothiazide but currently not taking. N.p.o., IV fluids, pain control Consult urology in a.m. Mild intermittent asthma Continue home inhalers Obesity Counseling Depression Continue home medications DVT prophylaxis SCDs Disposition MedSurg Full code. History of Present Illness Chief Complaint: Left renal colic Primary Care Provider: Munir Nunez MD 35-year-old female with past medical history significant for mild intermittent asthma, obesity, calcium oxalate renal calculi, depression, seasonal allergies presents with left flank pain and found to have left renal stone. Patient says pain started around evening on and off severe in nature. Associated with nausea and vomiting which brought her to the ER. Denies any burning micturition. No fevers. No chest pain or shortness of breath. No cough. No headache. No runny nose or sore throat. Hemodynamics are okay. Past medical history. As mentioned above. Past surgical history. Dental surgery. Social history. No smoking. Alcohol occasionally. No drug use. Family history. Brother has depression. Mother has hypertension. Father with nephrolithiasis. Sister has depression. Diabetes in the family. Allergies Allergy/AdvReac Type Severity Reaction Status Date / Time No Known Allergies Allergy Unverified 10/05/24 10:38 Home Medications Medication Instructions Recorded Confirmed Type bupropion HCl 300 mg 24 hr tablet, 300 mg PO DAILY 09/10/25 09/10/25 History extended release cetirizine 10 mg tablet (Zyrtec) 10 mg PO DAILY 09/10/25 09/10/25 History escitalopram oxalate 20 mg tablet 20 mg PO DAILY 09/10/25 09/10/25 History fluticasone propionate 50 1 inh inhalation BID 09/10/25 09/10/25 History mcg/actuation blister powder for inhalation montelukast 10 mg tablet 10 mg PO DAILY 09/10/25 09/10/25 History trazodone 50 mg tablet 25 mg PO HS PRN Insomnia 09/10/25 09/10/25 History Past Med/Surg History Problem List (Updated 09/10/25 @ 01:01 by Vishnu Nesbitt MD) Renal colic on left side Vomiting (Acute) Hydronephrosis (Acute) 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 Top only Family History (Updated 10/05/24 @ 14:19 by Caitlin Viera RN) Aunt Cancer Grandfather Diabetes Heart disease Hypertension Grandmother Diabetes Heart disease Hypertension Mother Hypertension Social History (Updated 10/05/24 @ 14:21 by Caitlin Viera, RADHA) Smoking Status: Never smoker Hx Alcohol Use: Yes Alcohol type: wine and hard liquor Alcohol Intake Frequency: 2-4 x/Month Hx Substance Use: Yes Prescribed Medications: Marijuana Last Used Substance: Days (ago) Preferred Language: Greek Track Worker Required: No Beliefs That Will Affect Care: None marital status: Single Current Living Situation: Family Current Living Situation Comment: Brother and current occupational status: employed current occupation: Childcare How many Children do You have: 0 Other Information That Helps Us Care for You: No Feels Safe at Home: Yes during the past year weight has: remained stable Assistive Devices: Glasses Review of Systems 2 Review of Systems: All systems reviewed & are unremarkable except as noted in HPI & below Physical Exam Physical Exam: General- Not in distress Head- atraumatic Eyes- PERRL. ENT- oropharynx clear Neck- supple, no JVD. Lungs- clear to auscultation no wheezing or crackles. Heart- regular rhythm; no murmur, no gallop. Abdomen- normal bowel sounds, soft, nontender, no distension Extremities- no pretibial edema, no erythema seen Neuro- alert, oriented PERRL, no facial palsy; no dysarthria; moves extremities Results & Data Results & Data Vital Signs (Past 12 Hours) Vital Signs Temp Pulse Pulse Resp BP BP Pulse Ox 09/09/25 23:21 74 17 134/94 93 09/09/25 22:31 74 16 152/111 H 99 09/09/25 21:31 84 18 154/104 H 100 09/09/25 20:14 36.6 C 86 18 163/107 H 100 O2 Del Method 09/09/25 23:21 Room Air 09/09/25 22:31 Room Air 09/09/25 21:31 Room Air 09/09/25 20:14 Room Air Diagnostic Findings Laboratory Results WBC 13.11 K/ul (4.8-10.8) H 09/09/25 20:51 RBC 5.89 M/uL (4.20-5.40) H 09/09/25 20:51 Hgb 15.7 g/dl (12.0-16.0) 09/09/25 20:51 Hct 49.1 % (37.0-47.0) H 09/09/25 20:51 MCV 83.4 fL (80.0-100.0) 09/09/25 20:51 MCH 26.7 pg (25.0-34.0) 09/09/25 20:51 MCHC 32.0 g/dL (32.0-36.0) 09/09/25 20:51 RDW Std Deviation 40.8 fL (36.4-46.3) 09/09/25 20:51 RDW Coeff of [place] 13.6 % (11.5-14.5) 09/09/25 20:51 Plt Count 326 K/uL (130-400) 09/09/25 20:51 MPV 9.8 fL (9.4-12.4) 09/09/25 20:51 Immature Gran % (Auto) 0.4 % 09/09/25 20:51 Neut % (Auto) 83.0 % 09/09/25 20:51 Lymph % (Auto) 11.9 % 09/09/25 20:51 [place] % (Auto) 4.2 % 09/09/25 20:51 Eos % (Auto) 0.2 % 09/09/25 20:51 Baso % (Auto) 0.3 % 09/09/25 20:51 Neut # (Auto) 10.88 K/uL (1.40-6.50) H 09/09/25 20:51 Lymph # (Auto) 1.56 K/uL (1.20-3.40) 09/09/25 20:51 [place] # (Auto) 0.55 K/uL (0.11-0.59) 09/09/25 20:51 Eos # (Auto) 0.03 K/uL (0.00-0.50) 09/09/25 20:51 Baso # (Auto) 0.04 K/uL (0.00-0.20) 09/09/25 20:51 Immature Gran # (Auto) 0.05 K/uL (0.01-0.20) 09/09/25 20:51 Platelet Estimate Normal (Normal) 09/09/25 20:51 Sodium 135 mmol/L (136-145) L 09/09/25 20:51 Potassium 3.9 mmol/L (3.5-5.1) 09/09/25 20:51 Chloride 103 mmol/L (98-107) 09/09/25 20:51 Carbon Dioxide 26 mmol/L (21-32) 09/09/25 20:51 Anion Gap 6 (3-11) 09/09/25 20:51 BUN 14 mg/dl (6-23) 09/09/25 20:51 Creatinine 0.86 mg/dl (0.6-1.2) 09/09/25 20:51 Est Cr Clr Drug Dosing 92.7 ml/min 09/09/25 20:51 eGFR 90.86 09/09/25 20:51 BUN/Creatinine Ratio 16.3 (10-20) 09/09/25 20:51 Glucose 110 mg/dl (70-99(Fasting)) H 09/09/25 20:51 Calcium 9.3 mg/dl (8.6-10.3) 09/09/25 20:51 Total Bilirubin 0.3 mg/dl (0.2-1.0) 09/09/25 20:51 AST 19 U/L (13-39) 09/09/25 20:51 ALT 24 U/L (7-52) 09/09/25 20:51 Alkaline Phosphatase 104 U/L (34-104) 09/09/25 20:51 Total Protein 8.5 gm/dl (6.0-8.3) H 09/09/25 20:51 Albumin 4.1 gm/dl (3.4-5.0) 09/09/25 20:51 Globulin 4.4 gm/dl (2.5-4.0) H 09/09/25 20:51 Albumin/Globulin Ratio 0.9 (0.9-2) 09/09/25 20:51 Lipase 23 U/L (11-82) 09/09/25 20:51 Urine Color Yellow 09/10/25 00:46 Urine Appearance Clear (Clear) 09/10/25 00:46 Urine pH 7.0 (4.5-7.5) 09/10/25 00:46 Ur Specific [place] 1.013 (1.000-1.030) 09/10/25 00:46 Urine Protein Trace (Negative) H 09/10/25 00:46 Urine Glucose (UA) Negative (Negative) 09/10/25 00:46 Urine Ketones Negative (Negative) 09/10/25 00:46 Urine Blood 3+ (Negative) H 09/10/25 00:46 Urine Nitrite Negative (Negative) 09/10/25 00:46 Urine Bilirubin Negative (Negative) 09/10/25 00:46 Urine Urobilinogen Negative (Negative) 09/10/25 00:46 Ur Leukocyte Esterase 1+ (Negative) H 09/10/25 00:46 Urine WBC (Auto) 6-10 /hpf (0-5) H 09/10/25 00:46 Urine RBC (Auto) >20 /hpf (0-2) H 09/10/25 00:46 U Hyaline Cast (Auto) 0-2 /lpf (0-2) 09/10/25 00:46 U Epithel Cells (Auto) 0-2 /hpf (0-2) 09/10/25 00:46 Urine Bacteria (Auto) None Seen (None Seen) 09/10/25 00:46 Urine Test Negative (Negative) 09/09/25 Unknown Urine Comment 09/10/25 00:46 Impressions Abdomen/Pelvis CT 10/26/25 20:19 Exam(s): CT ABDOMEN + PELVIS Without Contrast EXAM: CT Abdomen and Pelvis Without Intravenous Contrast CLINICAL HISTORY: Reason for exam: flank pain. TECHNIQUE: Axial computed tomography images of the abdomen and pelvis without intravenous contrast. CTDI is 27.44 mGy and DLP is 1174.04 mGy-cm. Automated exposure control was utilized for the study. A dose lowering technique was utilized adhering to the principles of ALARA. COMPARISON: CT September 21, 2018 FINDINGS: ABDOMEN: Liver: Unremarkable. Gallbladder and bile ducts: Unremarkable. Pancreas: Unremarkable. Spleen: Unremarkable. Adrenals: Unremarkable. Kidneys and ureters: Stone at the left UPJ measuring 4 mm causing mild left-sided hydronephrosis. Multiple nephrolithiasis in the kidneys bilaterally. Stomach and bowel: Unremarkable. PELVIS: Appendix: No findings to suggest acute appendicitis. Bladder: Unremarkable. Reproductive: IUD within the uterus. ABDOMEN and PELVIS: Intraperitoneal space: Unremarkable. No free air. No significant fluid collection. Bones/joints: No acute fracture. Soft tissues: Unremarkable. Vasculature: Unremarkable. Lymph nodes: Unremarkable. IMPRESSION: Stone at the left UPJ measuring 4 mm causing mild left-sided hydronephrosis. Electronically signed by: Lennox Perez MD 09/09/25 21:08 PM Code Status & VTE Plan VTE Prophylaxis Plan VTE Prophylaxis will be ordered: Yes
[2025-09-10] MEDS ORDERED: MoRPHine SULFATE 4 MG/ML 1 ML CARP\\VIAL IV PRN (02:13)
[2025-09-10] MEDS ORDERED: INFLUENZA VACC TS2025-26(6m+)/PF (IIV3) 0.5mL Syr IM ONE (02:28)
[2025-09-10] MEDS: SODIUM CHLORIDE 0.9% 1,000 ML IV SCH (02:30)
[2025-09-10 09:10] LABS: Hematocrit (blood only) 41.2 % (37.0-47.0); Hemoglobin 13.4 g/dl (12.0-16.0); Mean Corpuscular Hemoglobin 26.9 pg (25.0-34.0); Mean Corpuscular Volume 82.6 fL (80.0-100.0); Platelet Count 313 K/uL (130-400); RDW Standard Deviation 40.3 fL (36.4-46.3); Red Blood Count 4.99 M/uL (4.20-5.40); White Blood Count 9.75 K/ul (4.8-10.8)
[2025-09-10 09:30] LABS: Anion Gap 5.0 (3-11); Blood Urea Nitrogen 12.0 mg/dl (6-23); Calcium 8.6 mg/dl (8.6-10.3); Carbon Dioxide 29.0 mmol/L (21-32); Chloride 105.0 mmol/L (98-107); Creatinine Clr Calc Pharmacy 108.8 ml/min; Glucose 86.0 mg/dl (70-99(Fasting)); Potassium 3.5 mmol/L (3.5-5.1); Sodium 139.0 mmol/L (136-145)
--- NOTE | 2025-09-10 11:31 | Urology Consultation ---
<Statement entered by Eduardo Terry MD - 09/10/25 13:30> 35-year-old female with 4 mm left ureteral stone. No significant leukocytosis. Renal function is normal. I think she is a good candidate for medical expulsive therapy. Would recommend pain control with Tylenol/ibuprofen, Pyridium, tamsulosin. If pain can be controlled, I think it would be reasonable for disch arge home this afternoon with outpatient follow-up. If she stays overnight, would recommend n.p.o. for potential procedure on 09/11. Date of Consultation September 10, 2025 Assessment & Plan (1) Ureterolithiasis: (2) Renal colic on left side: (3) Hydronephrosis: Plan 35yo female admitted with pain secondary to an obstructing 4mm left UPJ stone No pain at present. Pt afebrile and hemodynamically stable Labs -Leukocytosis resolved, creatinine 0.74 We discussed option for acute stone management with cystoscopy and stent placement. Ureteral stents were discussed as well as postoperative issues and pain management. She is aware a second procedure would be needed for stone treatment. Also discussed option for trial of passage with maximum expulsion therapy. Stone passage rates given size and location were reviewed. Risks and benefits of each were discussed. Patient prefers trial of passage with max expulsion therapy. No plan for intervention at this time. Continue hydration and straining all urine. Recommend tamsulosin and pain medication as needed. If she is feeling well this afternoon, it would be reasonable to discharge her with oral pain control medications and close urology follow-up. If she ends up staying overnight, would recommend n.p.o. at midnight to reassess in the morning. Urology will follow along- please contact us with any changes in patients clinical status. History of Present Illness Attending Physician: Chandni Hurley MD History of Present Illness 35-year-old female who presented to the emergency room on 09/09/2025 for left flank pain. On arrival, she was afebrile and hemodynamically stable. Labs showing a mild leukocytosis of 13.11 and normal renal function. Urinalysis showing 3+ blood, 1+ LE, 610 WBC, >20 RBC, negative bacteria, negative nitrite. CT abdomen pelvis demonstrated a 4 mm left UPJ calculus with mild hydronephrosis and additional multiple bilateral nephrolithiasis. She was admitted to medicine service for pain control. Patient seen at bedside this morning. She is awake and resting in bed on arrival. No acute distress. Has been NPO. No c/o of pain at present. Denies fever, chills, nausea, vomiting. Voiding without issue. No dysuria. She reports a history of kidney stones with prior spontaneous passage. Allergies Allergy/AdvReac Type Severity Reaction Status Date / Time No Known Allergies Allergy Unverified 10/05/24 10:38 Home Medications Medication Instructions Recorded Confirmed Type bupropion HCl 300 mg 24 hr tablet, 300 mg PO DAILY 09/10/25 09/10/25 History extended release cetirizine 10 mg tablet (Zyrtec) 10 mg PO DAILY 09/10/25 09/10/25 History escitalopram oxalate 20 mg tablet 20 mg PO DAILY 09/10/25 09/10/25 History fluticasone propionate 50 1 inh inhalation BID 09/10/25 09/10/25 History mcg/actuation blister powder for inhalation montelukast 10 mg tablet 10 mg PO DAILY 09/10/25 09/10/25 History trazodone 50 mg tablet 25 mg PO HS PRN Insomnia 09/10/25 09/10/25 History Patient History Surgical History (Updated 10/05/24 @ 14:17 by Caitlin Viera RN) [place] teeth removed 2012. 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 Beliefs That Will Affect Care: None marital status: Single Current Living Situation: Family Current Living Situation Comment: Brother and current occupational status: employed current occupation: Childcare How many Children do You have: 0 Other Information That Helps Us Care for You: No Feels Safe at Home: Yes during the past year weight has: remained stable Assistive Devices: Glasses Review of Systems Review of Systems: All systems reviewed & are unremarkable except as noted in HPI & below Physical Exam Constitutional: no acute distress Respiratory: no respiratory distress and no labored breathing Neurologic: moves all extremities and awake Psychiatric: A+Ox3, euthymic affect Results & Data Vital Signs (Past 12 Hours) Vital Signs Temp Pulse Resp BP Pulse Ox O2 Del Method 09/10/25 07:14 36.7 C 75 16 142/83 H 99 Room Air 09/10/25 02:18 36.6 C 88 18 164/91 H 98 Room Air 09/10/25 02:00 74 16 129/68 97 Room Air 09/10/25 01:00 82 17 130/97 94 Room Air PG Care Time/CCT Total # of Minutes Spent Total Time Spent with Patient: Total time spent is greater than 50% in coordination of care (as documented) at patient's floor/unit and/or counseling patient: Coding Level of Care Code 34497 IN/OBS CONSULT LVL 4,60M Diagnoses Ureterolithiasis N20.1 Renal colic on left side N23 Hydronephrosis N13.30 Hydronephrosis type: unspecified (3) Hydronephrosis Hydronephrosis type: unspecified Qualified Code(s): N13.30 - Unspecified hydronephrosis
[2025-09-10] MEDS: ACETAMINOPHEN 1,000 MG/100 ML VIAL IV PRN (15:24)
--- NOTE | 2025-09-10 16:18 | Hospitalist Progress Note ---
Date of Service September 10, 2025 Assessment & Plan (1) Renal colic on left side: Plan: Left renal colic Patient presenting from home for evaluation of left flank pain CT scan showing stone at the left UPJ measuring 4 mm causing mild left-sided hydronephrosis Renal function stable (creat 0.7), afebrile, no leukocytosis History of nephrolithiasis with calcium oxalate stones and was on hydrochlorothiazide but currently not taking Urology consulted - note reviewed, planning for nonoperative management IV fluids, Flomax, pain control, strain urine NPO after MN in the event patient is not able to pass the stone Mild intermittent asthma No signs of acute exacerbation Continue home inhalers and meds Depression Continue home medications DVT prophylaxis SCDs Patient seen in collaboration with Dr. Hurley. I spent a total of 35 minutes coordinating, documenting, and providing care for this patient excluding time spent in the performance of separately billed services. This included personally reviewing all current laboratories and imaging studies, medication reconciliation, outpatient chart review, and discussion with specialists. Admission and Anticipated Discharge Date Admission Date: September 10, 2025 Supervising Physician Co-Signing Physician Notes Patient seen and examined Agree with findings as detailed by Mariya DIAL Subjective Follow-up for renal calculi. Patient seen and examined. Resting in bed. Reports pain is well-controlled, denies hematuria. Was evaluated by urology, planning for nonoperative management. Physical Exam Constitutional: WD/WN, vitals as above no acute distress Respiratory: normal respiratory effort, lungs clear to auscultation Cardiovascular: Rate/Rhythm: regular rate and regular rhythm Vessels: normal peripheral pulses Extremities: no edema Gastrointestinal (Abdomen): Percussion/Palpation: abdomen soft; abdomen nontender Skin: no rashes, warm and dry Neurologic: no focal motor deficits Psychiatric: A+Ox3, euthymic affect Genitourinary: no CVA tenderness Results & Data Results & Data Vital Signs (Past 12 Hours) Vital Signs Temp Pulse Resp BP Pulse Ox O2 Del Method 09/10/25 14:46 36.5 C 67 16 152/96 H 98 Room Air 09/10/25 07:14 36.7 C 75 16 142/83 H 99 Room Air Laboratory Results Short CBC 09/09/25 09/10/25 Range/Units 20:51 08:52 WBC 13.11 H 9.75 (4.8-10.8) K/ul Hgb 15.7 13.4 (12.0-16.0) g/dl Hct 49.1 H 41.2 (37.0-47.0) % Plt Count 326 313 (130-400) K/uL BMP 09/09/25 09/10/25 20:51 08:52 Sodium 135 L 139 Potassium 3.9 3.5 Chloride 103 105 Carbon Dioxide 26 29 BUN 14 12 Creatinine 0.86 0.74 Glucose 110 H 86 Calcium 9.3 8.6 Liver Function 09/09/25 Range/Units 20:51 Total Bilirubin 0.3 (0.2-1.0) mg/dl AST 19 (13-39) U/L ALT 24 (7-52) U/L Alkaline Phosphatase 104 (34-104) U/L Albumin 4.1 (3.4-5.0) gm/dl Urine 09/09/25 09/10/25 Range/Units 20:42 00:46 Urine Color [place] Yellow Urine Appearance Cloudy A Clear (Clear) Urine pH 5.0 7.0 (4.5-7.5) Ur Specific [place] 1.023 1.013 (1.000-1.030) Urine Protein 2+ H Trace H (Negative) Urine Glucose (UA) Negative Negative (Negative)
[2025-09-10] MEDS: TAMSULOSIN HCL 0.4 MG CAP PO ONE (16:42)
[2025-09-11 06:42] LABS: Hematocrit (blood only) 40.5 % (37.0-47.0); Hemoglobin 13.4 g/dl (12.0-16.0); Mean Corpuscular Hemoglobin 26.6 pg (25.0-34.0); Mean Corpuscular Volume 80.4 fL (80.0-100.0); Platelet Count 295 K/uL (130-400); RDW Standard Deviation 38.2 fL (36.4-46.3); Red Blood Count 5.04 M/uL (4.20-5.40); White Blood Count 7.94 K/ul (4.8-10.8)
[2025-09-11 07:02] LABS: Anion Gap 7.0 (3-11); Blood Urea Nitrogen 12.0 mg/dl (6-23); Calcium 8.2 mg/dl (8.6-10.3); Carbon Dioxide 25.0 mmol/L (21-32); Chloride 106.0 mmol/L (98-107); Creatinine Clr Calc Pharmacy 118.4 ml/min; Glucose 93.0 mg/dl (70-99(Fasting)); Potassium 3.5 mmol/L (3.5-5.1); Sodium 138.0 mmol/L (136-145)
--- NOTE | 2025-09-11 08:30 | Urology Progress Note ---
<Statement entered by Eduardo Terry MD - 09/11/25 10:38> 35-year-old female with multiple bilateral renal stones as well as obstructing stone at the left UPJ. Initial plan was for trial of medical expulsive therapy, however she has been having ongoing pain, therefore we will plan on cystoscopy, left retrograde pyelogram and left ureteral stent placement today. Please keep n.p.o. in anticipation of surgical intervention. Date of Service September 11, 2025 Assessment & Plan (1) Renal colic on left side: (2) Hydronephrosis: (3) Kidney stone: Plan: 35 year old with 4mm left ureteral UPJ stone, bilateral nephrolithiasis. NPO. Discussed treatment: observation vs cystoscopy/stent placement. She thinks she wants to proceed with surgical intervention at this point. Discussed with her that she would need definitive stone treatment at later date. Continue NPO. Will discuss with Dr Terry. Vital signs stable. Afebrile wbc 7.94, Cr 0.68 Admission and Anticipated Discharge Date Admission Date: September 10, 2025 Subjective 35 year old patient with 4mm left calculus at the UPJ, bilateral nephrolithiasi s. Pain has been reasonably controlled. Currently not having back/flank or abdominal pain. Denies n/v. No urinary complaints. Denies stone passage. Physical Exam Constitutional: well developed and well nourished; no acute distress Respiratory: normal respiratory effort Gastrointestinal (Abdomen): Percussion/Palpation: abdomen nontender Psychiatric: A+Ox3, euthymic affect Genitourinary: no CVA tenderness Results & Data Vital Signs (Past 12 Hours) Vital Signs Temp Pulse Resp BP Pulse Ox O2 Del Method 09/11/25 07:19 36.9 C 83 16 156/97 H 98 Room Air 09/10/25 23:07 36.9 C 78 16 142/88 H 99 Room Air PG Care Time/CCT Total # of Minutes Spent Total Time Spent with Patient: Total time spent is greater than 50% in coordination of care (as documented) at patient's floor/unit and/or counseling patient: Coding Level of Care Code 05005 SUB INP/OBS CARE 2/35MIN Diagnoses Renal colic on left side N23 Hydronephrosis N13.30 Hydronephrosis type: unspecified Kidney stone N20.0 (2) Hydronephrosis Hydronephrosis type: unspecified Qualified Code(s): N13.30 - Unspecified hydronephrosis
[2025-09-11] MEDS: FLUTICASONE FUROATE 100MCG 14 PUFFS/INHALER INH SCH (08:48)
[2025-09-11] MEDS: CETIRIZINE HCL 10 MG TABLET PO SCH (08:48)
[2025-09-11] MEDS: TAMSULOSIN HCL 0.4 MG CAP PO SCH (08:48)
[2025-09-11] MEDS: ESCITALOPRAM OXALATE 20 MG TAB PO SCH (08:48)
[2025-09-11] MEDS: MONTELUKAST SODIUM 10 MG TABLET PO SCH (08:48)
[2025-09-11] MEDS ORDERED: LIDOCAINE 2% 2 ML VIAL/AMP(20MG/ML) INFIL ONE (14:58)
[2025-09-11] MEDS ORDERED: ONDANSETRON INJ 2 MG/ML 2 ML VIAL ONE (14:58)
[2025-09-11] MEDS ORDERED: MIDAZOLAM HCL 1 MG/ML 2ML VIAL ONE (14:58)
[2025-09-11] MEDS ORDERED: PROPOFOL IV EMULSION 10 MG/ML 20 ML VIAL IV ONE (14:58)
[2025-09-11] MEDS ORDERED: DEXAMETHASONE SOD INJ 4 MG/ML VIAL ONE (14:58)
[2025-09-11] MEDS ORDERED: GLYCOPYRROLATE 0.2 MG/ML VIAL ONE (14:59)
[2025-09-11] MEDS: ONDANSETRON INJ 2 MG/ML 2 ML VIAL IV PRN (15:45)
--- NOTE | 2025-09-11 16:06 | Anesthesiology Consultation ---
Date of Service September 11, 2025 Assessment & Plan (1) Encounter for pre-operative examination: Chart Review Chart Review: Acceptable Risk for Surgery and Patient NOT seen in Pre Admission Testing Consults Requested none ASA ASA2 Proposed Anesthesia Anesthesia Type: MAC History Surgery Operation Date: 09/11/25 09:20 Proposed Procedures p Cystoscopy Left Retrograde Pyelogram and Stent Placement - Eduardo Terry MD Height/Weight Height: 5 ft Weight: 92.6 kg Allergies Allergy/AdvReac Type Severity Reaction Status Date / Time No Known Allergies Allergy Unverified 10/05/24 10:38 Medications Home Medications Medication Instructions Recorded Confirmed Last Taken bupropion HCl 300 mg 24 hr tablet, 300 mg PO DAILY 09/10/25 09/10/25 Unknown extended release cetirizine 10 mg tablet (Zyrtec) 10 mg PO DAILY 09/10/25 09/10/25 Unknown escitalopram oxalate 20 mg tablet 20 mg PO DAILY 09/10/25 09/10/25 Unknown fluticasone propionate 50 1 inh inhalation BID 09/10/25 09/10/25 Unknown mcg/actuation blister powder for inhalation montelukast 10 mg tablet 10 mg PO DAILY 09/10/25 09/10/25 Unknown trazodone 50 mg tablet 25 mg PO HS PRN Insomnia 09/10/25 09/10/25 Unknown Active Medications Generic Name Dose Route Start Last Admin Trade Name Freq PRN Reason Stop Dose Admin Bupropion HCl 300 mg 09/11/25 09:00 09/11/25 08:48 Bupropion Xl 300 Mg Tabcr PO 10/11/25 08:59 300 mg DAILY CARMEL Administration Cetirizine HCl 10 mg 09/11/25 09:00 09/11/25 08:48 Cetirizine Hcl 10 Mg Tablet PO 10/11/25 08:59 10 mg DAILY CARMEL Administration Escitalopram Oxalate 20 mg 09/11/25 09:00 09/11/25 08:48 Escitalopram Oxalate 20 Mg Tab PO 10/11/25 08:59 20 mg DAILY CARMEL Administration Fluticasone Furoate 1 puffs 09/11/25 09:00 09/11/25 08:48 Fluticasone Furoate 100mcg 14 Puffs/Inhaler INH 10/11/25 08:59 1 puffs DAILY CARMEL Administration Sodium Chloride 1,000 mls @ 125 mls/hr 09/10/25 02:13 09/11/25 11:00 Nss IV 09/13/25 02:12 125 mls/hr .Q8H CARMEL Administration Acetaminophen 1,000 mg in 100 mls @ 400 mls/hr 09/10/25 02:13 09/10/25 15:42 Ofirmev IV 09/13/25 02:12 Infused Q8H PRN Infusion Pain or Fever Montelukast Sodium 10 mg 09/11/25 09:00 09/11/25 08:48 Montelukast Sodium 10 Mg Tablet PO 10/11/25 08:59 10 mg DAILY CARMEL Administration Ondansetron HCl 4 mg 09/10/25 02:13 09/11/25 15:45 Ondansetron Inj 2 Mg/Ml 2 Ml Vial IV 10/10/25 02:12 4 mg Q6H PRN Administration Nausea Tamsulosin HCl 0.4 mg 09/11/25 09:00 09/11/25 08:48 Tamsulosin Hcl 0.4 Mg Cap PO 10/11/25 08:59 0.4 mg QAM CARMEL Administration Past Family History Family History Aunt Cancer Grandfather Diabetes Heart disease Hypertension Grandmother Diabetes Heart disease Hypertension Mother Hypertension Past Surgical History Surgical History [place] teeth removed 2012. Top only Social History Smoking Status: Never smoker Hx Alcohol Use: Yes Alcohol type: wine and hard liquor alcohol intake frequency: holidays/special occasions only Hx Substance Use: Yes substance use type: marijuana Last Used Substance: Days (ago) Physical Exam Vital Signs Last Vital Signs Temp 98.4 F 09/11/25 07:19 Pulse 83 09/11/25 07:19 Resp 16 09/11/25 07:19 BP 156/97 H 09/11/25 07:19 Pulse Ox 98 09/11/25 08:05 O2 Del Method Room Air 09/11/25 08:05 ENMT Mouth: no dentition abnormality Thyromental Distance: > or= 3.5 Finger Breadths Mallampati Class: II Mouth / Teeth: 2 1. Natural gap between teeth Neck normal visual inspection Respiratory normal respiratory effort Auscultation: lungs clear to auscultation bilaterally Cardiovascular Rate/Rhythm: regular rate and regular rhythm Psychiatric Orientation: alert and oriented x 3 Testing Laboratory Results 09/11/25 05:33 09/11/25 05:33 Urine Color Yellow 09/10/25 00:46 Urine Appearance Clear (Clear) 09/10/25 00:46 Urine pH 7.0 (4.5-7.5) 09/10/25 00:46 Ur Specific [place] 1.013 (1.000-1.030) 09/10/25 00:46 Urine Protein Trace (Negative) H 09/10/25 00:46 Urine Glucose (UA) Negative (Negative) 09/10/25 00:46 Urine Ketones Negative (Negative) 09/10/25 00:46 Urine Nitrite Negative (Negative) 09/10/25 00:46 Ur Leukocyte Esterase 1+ (Negative) H 09/10/25 00:46 Urine WBC (Auto) 6-10 /hpf (0-5) H 09/10/25 00:46 Urine RBC (Auto) >20 /hpf (0-2) H 09/10/25 00:46 U Hyaline Cast (Auto) 0-2 /lpf (0-2) 09/10/25 00:46 U Epithel Cells (Auto) 0-2 /hpf (0-2) 09/10/25 00:46 Urine Bacteria (Auto) None Seen (None Seen) 09/10/25 00:46 Urine Test Negative (Negative) 09/09/25 Unknown 09/09/25 Unknown Urine Test Negative
[2025-09-11] MEDS ORDERED: KETAMINE HCL 10MG/ML SYR ONE (16:08)
--- NOTE | 2025-09-11 16:18 | Hospitalist Progress Note ---
Date of Service September 11, 2025 Assessment & Plan (1) Renal colic on left side: Plan: Left renal colic Patient presenting from home for evaluation of left flank pain CT scan showing stone at the left UPJ measuring 4 mm causing mild left-sided hydronephrosis Renal function stable (creat 0.7 -> 0.6), afebrile, no leukocytosis History of nephrolithiasis with calcium oxalate stones and was on hydrochlorothiazide but currently not taking Urology consulted - note reviewed - planning for cystoscopy and left ureteral stent placement today IV fluids, Flomax, pain control, strain urine Mild intermittent asthma No signs of acute exacerbation Continue home inhalers and meds Depression Continue home medications DVT prophylaxis SCDs Patient seen in collaboration with Dr. Hurley. I spent a total of 25 minutes coordinating, documenting, and providing care for this patient excluding time spent in the performance of separately billed services. This included personally reviewing all current laboratories and imaging studies, medication reconciliation, outpatient chart review, and discussion with specialists. Admission and Anticipated Discharge Date Admission Date: September 10, 2025 Supervising Physician Co-Signing Physician Notes Patient seen and examined Agree with findings and plans as detailed by Mariya DIAL Subjective Follow-up for left renal calculi. Patient seen and examined. Resting in bed. Offers no complaints. Unable to pass kidney stone. Urology planning for cystoscopy and left ureteral stent placement today. Physical Exam Constitutional: WD/WN, vitals as above no acute distress Respiratory: normal respiratory effort, lungs clear to auscultation Cardiovascular: Rate/Rhythm: regular rate and regular rhythm Vessels: lauren l peripheral pulses Extremities: no edema Skin: no rashes, warm and dry Neurologic: no focal motor deficits Psychiatric: A+Ox3, euthymic affect Genitourinary: no CVA tenderness Results & Data Results & Data Vital Signs (Past 12 Hours) Vital Signs Temp Pulse Resp BP Pulse Ox Pulse Ox O2 Del Method 09/11/25 08:05 Room Air 09/11/25 08:05 98 09/11/25 07:19 36.9 C 83 16 156/97 H 98 Room Air O2 Del Method 09/11/25 08:05 09/11/25 08:05 Room Air 09/11/25 07:19 Laboratory Results Short CBC 09/11/25 Range/Units 05:33 WBC 7.94 (4.8-10.8) K/ul Hgb 13.4 (12.0-16.0) g/dl Hct 40.5 (37.0-47.0) % Plt Count 295 (130-400) K/uL [facility] 09/11/25 05:33 Sodium 138 Potassium 3.5 Chloride 106 Carbon Dioxide 25 BUN 12 Creatinine 0.68 Glucose 93 Calcium 8.2 L
[2025-09-11] MEDS: DIATRIZOATE MEGLUMINE 30% 100ML VIAL INSTIL ONE (16:44)
--- NOTE | 2025-09-11 17:08 | Operative Report ---
PG Post Operative Report Pre & Post Diagnosis Operation Date: 09/11/25 09:20 Pre-Op Diagnosis: Renal colic on left side, Hydronephrosis, Kidney stone Post-Op Diagnosis: Renal colic on left side, Hydronephrosis, Kidney stone I identified the patient and participated in the time-out.: Yes Procedure Operation Date: 09/11/25 09:20 Actual Procedures p Cystoscopy Left Retrograde Pyelogram and Left Stent Placement(Left) - Eduardo Terry MD Surgeon Eduardo Terry MD Desk Reporter None Estimated Blood Loss 0 Findings Consistent with Post-Op Diagnosis Specimens None Drains 6 Kyrgyz by 24 cm double-J ureteral stent in the left ureter Anesthesia Type MAC Complications none Disposition Accompanied Patient To Recovery: Yes Disposition: Recovery Room Indications This is a 35-year-old female followed by urology for nephrolithiasis. She presented to the emergency department with left-sided flank pain and is found to have a left ureteral stone as well as nonobstructing stones in her kidneys. Initial plan was for trial of medical expulsive therapy, however she had ongoing pain and is brought to the OR for left ureteral stent placement. Description of Procedure The patient was identified in the holding area and informed consent was confirmed. She was marked on the left side, then was taken to the operating harman m where anesthesia was initiated. She was placed in the dorsal lithotomy position with all pressure points appropriately padded. She was prepped and draped in the usual sterile fashion and a preoperative timeout was performed. A well-lubricated cystoscope was inserted per urethra and panendoscopy was performed. The urethra was normal in appearance. The bladder was of normal size with ureteral orifices in orthotopic position. The left ureteral orifice was identified and cannulated with a 5 Kyrgyz open- ended catheter. A retrograde pyelogram was performed demonstrating mild dilation of the left kidney. The ureter was normal in course and slightly dilated. A 0.038" ZIPwire was advanced to the level of the kidney under fluoroscopic guidance. Over the wire, a 6 Kyrgyz x 24 centimeter double-J ureteral stent was advanced. When the wire was removed, the proximal curl was visualized in the kidney with x-ray, and the distal curl visualized in the bladder with the cystoscope. At this point the bladder was drained and all instrumentation was removed. The patient was then awakened from anesthesia and was brought to the PACU in stable condition. I attest to the content of the Intraoperative Record and any orders documented therein. Any exceptions are noted below.
--- NOTE | 2025-09-11 17:44 | Anesthesiology Progress Note ---
Date of Service September 11, 2025 Anesthesia Post Procedure Vital Signs Vital Signs: Temp Pulse Pulse Resp BP Pulse Ox Pulse Ox 09/11/25 17:35 93 H 16 147/92 H 96 09/11/25 17:20 96.8 F L 103 H 17 146/88 H 96 09/11/25 17:10 113 H 19 139/84 94 09/11/25 17:00 118 H 17 127/87 99 09/11/25 16:51 96.8 F L 120 H 12 133/80 97 09/11/25 16:11 99.1 F 97 H 20 148/94 H 96 09/11/25 08:05 09/11/25 08:05 98 09/11/25 07:19 98.4 F 83 16 156/97 H 98 09/10/25 23:07 98.4 F 78 16 142/88 H 99 O2 Del Method O2 Del Method O2 Flow Rate 09/11/25 17:35 Room Air 09/11/25 17:20 Room Air 09/11/25 17:10 Room Air 09/11/25 17:00 Room Air 09/11/25 16:51 Oxymask 6 09/11/25 16:11 Room Air 09/11/25 08:05 Room Air 09/11/25 08:05 Room Air 09/11/25 07:19 Room Air 09/10/25 23:07 Room Air Transfer of Care Handoff Completed per policy Notes Mental Status: alert / awake / arousable and participated in evaluation Patient Amnestic to Procedure: Yes Nausea / Vomiting: adequately controlled Pain: adequately controlled Airway Patency, RR, SpO2: stable & adequate BP & HR: stable & adequate Hydration State: stable & adequate Anesthetic Complications: no major complications apparent and Pt Satisfied with anesthetic care
[2025-09-11] MEDS: SODIUM CHLORIDE 0.9% 1,000 ML IV SCH (22:00)
[2025-09-12 06:11] LABS: Hematocrit (blood only) 41.1 % (37.0-47.0); Hemoglobin 13.9 g/dl (12.0-16.0); Mean Corpuscular Hemoglobin 26.6 pg (25.0-34.0); Mean Corpuscular Volume 78.7 fL (80.0-100.0); Platelet Count 355 K/uL (130-400); RDW Standard Deviation 36.8 fL (36.4-46.3); Red Blood Count 5.22 M/uL (4.20-5.40); White Blood Count 10.88 K/ul (4.8-10.8)
[2025-09-12 06:26] LABS: Anion Gap 7.0 (3-11); Blood Urea Nitrogen 12.0 mg/dl (6-23); Calcium 9.1 mg/dl (8.6-10.3); Carbon Dioxide 25.0 mmol/L (21-32); Chloride 105.0 mmol/L (98-107); Creatinine Clr Calc Pharmacy 101.9 ml/min; Glucose 115.0 mg/dl (70-99(Fasting)); Potassium 4.0 mmol/L (3.5-5.1); Sodium 137.0 mmol/L (136-145)
[2025-09-12 07:40] VITALS: PULSE 71; RESP 17; TEMP 97.9; O2SAT 95
--- NOTE | 2025-09-12 08:15 | Fluoroscopy Report ---
FL retrograde includes kub CLINICAL HISTORY: STENT;/RETROGRADE COMPARISON STUDY: None FLUOROSCOPY TIME: 7 seconds FLUOROSCOPY IMAGES: 4 EXPOSURE DOSE: 3.5 mGy FINDINGS: Fluoroscopy was provided for urologic procedure. IMPRESSION: Intraoperative fluoroscopy. ACT 112: Negative or not required by law. Electronically signed by: Jesus Lujan M.D. 09/12/2025 8:14 AM
--- NOTE | 2025-09-12 09:08 | Urology Progress Note ---
Date of Service September 12, 2025 Assessment & Plan (1) Renal colic on left side: (2) Kidney stone: Plan She is recovering appropriately from cystoscopy and Left ureteral stent placement. I think she would be appropriate for discharge home today. Urology will plan to coordinate outpatient follow-up for definitive stone removal. At the bedside today we discussed ureteroscopy and laser lithotripsy as the best way to clear her kidneys of stone. We discussed associated risks of bleeding, infection, injury to urinary tract, need for additional procedures, need for ureteral stent. She expressed understanding and would like to proceed. Will plan to coordinate this surgery as an outpatient. Admission and Anticipated Discharge Date Admission Date: September 10, 2025 Subjective Feeling well this morning, stone pain has improved. She feels the stent in place, but it is gradually settling down. Denies any fevers or chills Not having any nausea or vomiting Physical Exam Physical Exam: Well-appearing, NAD Results & Data Vital Signs (Past 12 Hours) Vital Signs Temp Pulse Resp BP BP Pulse Ox O2 Del Method 09/12/25 08:25 163/100 H 178/96 H 09/12/25 07:48 189/112 H 172/100 H 09/12/25 07:38 36.6 C 71 17 173/111 H 95 Room Air 09/11/25 21:29 36.9 C 97 H 16 149/90 H 98 Room Air PG Care Time/CCT Total # of Minutes Spent Total Time Spent with Patient: Total time spent is greater than 50% in coordination of care (as documented) at patient's floor/unit and/or counseling patient: Coding Level of Care Code 34750 SUB INP/OBS CARE 2/35MIN Diagnoses Renal colic on left side N23 Kidney stone N20.0
[2025-09-12 12:50] VITALS: BP 149/89
--- NOTE | 2025-09-12 16:33 | Discharge Summary ---
<Statement entered by Jerome Persaud DO - 09/12/25 16:54> Patient seen and examined no complaints today. BP improved. f/u urology as OP for stent removal Date of Service September 12, 2025 Admission HPI Per Admitting Provider 35-year-old female with past medical history significant for mild intermittent asthma, obesity, calcium oxalate renal calculi, depression, seasonal allergies presents with left flank pain and found to have left renal stone. Patient says pain started around evening on and off severe in nature. Associated with nausea and vomiting which brought her to the ER. Denies any burning micturition. No fevers. No chest pain or shortness of breath. No cough. No headache. No runny nose or sore throat. Hemodynamics are okay. Past medical history. As mentioned above. Past surgical history. Dental surgery. Social history. No smoking. Alcohol occasionally. No drug use. Family history. Brother has depression. Mother has hypertension. Father with nephrolithiasis. Sister has depression. Diabetes in the family. Admission Exam Per Admitting Provider General- Not in distress Head- atraumatic Eyes- PERRL. ENT- oropharynx clear Neck- supple, no JVD. Lungs- clear to auscultation no wheezing or crackles. Heart- regular rhythm; no murmur, no gallop. Abdomen- normal bowel sounds, soft, nontender, no distension Extremities- no pretibial edema, no erythema seen Neuro- alert, oriented PERRL, no facial palsy; no dysarthria; moves extremities Principal Diagnosis Left renal colic s/p cystoscopy and left ureteral stent placement Discharge Exam Constitutional WD/WN, vitals as above no acute distress Respiratory normal respiratory effort, lungs clear to auscultation Cardiovascular Rate/Rhythm: regular rate and regular rhythm Vessels: normal peripheral pulses Extremities: no edema Skin no rashes, warm and dry Neurologic no focal motor deficits Psychiatric A+Ox3, euthymic affect Genitourinary no CVA tenderness Discharge Data Allergies Allergy/AdvReac Type Severity Reaction Status Date / Time No Known Allergies Allergy Unverified 10/05/24 10:38 Consultations 09/10/25 08:00 Consult Urology Routine Procedures Performed Operation Date: 09/11/25 09:20 Actual Procedures p Cystoscopy Left Retrograde Pyelogram and Left Stent Placement(Left) - Eduardo Terry MD Ordered Studies Laboratory Results WBC 10.88 K/ul (4.8-10.8) H 09/12/25 05:34 RBC 5.22 M/uL (4.20-5.40) 09/12/25 05:34 Hgb 13.9 g/dl (12.0-16.0) 09/12/25 05:34 Hct 41.1 % (37.0-47.0) 09/12/25 05:34 MCV 78.7 fL (80.0-100.0) L 09/12/25 05:34 MCH 26.6 pg (25.0-34.0) 09/12/25 05:34 MCHC 33.8 g/dL (32.0-36.0) 09/12/25 05:34 RDW Std Deviation 36.8 fL (36.4-46.3) 09/12/25 05:34 RDW Coeff of [place] 13.0 % (11.5-14.5) 09/12/25 05:34 Plt Count 355 K/uL (130-400) 09/12/25 05:34 MPV 9.4 fL (9.4-12.4) 09/12/25 05:34 Immature Gran % (Auto) 0.4 % 09/09/25 20:51 Neut % (Auto) 83.0 % 09/09/25 20:51 Lymph % (Auto) 11.9 % 09/09/25 20:51 Charles % (Auto) 4.2 % 09/09/25 20:51 Eos % (Auto) 0.2 % 09/09/25 20:51 Baso % (Auto) 0.3 % 09/09/25 20:51 Neut # (Auto) 10.88 K/uL (1.40-6.50) H 09/09/25 20:51 Lymph # (Auto) 1.56 K/uL (1.20-3.40) 09/09/25 20:51 Charles # (Auto) 0.55 K/uL (0.11-0.59) 09/09/25 20:51 Eos # (Auto) 0.03 K/uL (0.00-0.50) 09/09/25 20:51 Baso # (Auto) 0.04 K/uL (0.00-0.20) 09/09/25 20:51 Immature Gran # (Auto) 0.05 K/uL (0.01-0.20) 09/09/25 20:51 Platelet Estimate Normal (Normal) 09/09/25 20:51 Sodium 137 mmol/L (136-145) 09/12/25 05:34 Potassium 4.0 mmol/L (3.5-5.1) 09/12/25 05:34 Chloride 105 mmol/L (98-107) 09/12/25 05:34 Carbon Dioxide 25 mmol/L (21-32) 09/12/25 05:34 Anion Gap 7 (3-11) 09/12/25 05:34 BUN 12 mg/dl (6-23) 09/12/25 05:34 Creatinine 0.79 mg/dl (0.6-1.2) 09/12/25 05:34 Est Cr Clr Drug Dosing 101.9 ml/min 09/12/25 05:34 eGFR 100.60 09/12/25 05:34 BUN/Creatinine Ratio 15.2 (10-20) 09/12/25 05:34 Glucose 115 mg/dl (70-99(Fasting)) H 09/12/25 05:34 Calcium 9.1 mg/dl (8.6-10.3) 09/12/25 05:34 Total Bilirubin 0.3 mg/dl (0.2-1.0) 09/09/25 20:51 AST 19 U/L (13-39) 09/09/25 20:51 ALT 24 U/L (7-52) 09/09/25 20:51 Alkaline Phosphatase 104 U/L (34-104) 09/09/25 20:51 Total Protein 8.5 gm/dl (6.0-8.3) H 09/09/25 20:51 Albumin 4.1 gm/dl (3.4-5.0) 09/09/25 20:51 Globulin 4.4 gm/dl (2.5-4.0) H 09/09/25 20:51 Albumin/Globulin Ratio 0.9 (0.9-2) 09/09/25 20:51 Lipase 23 U/L (11-82) 09/09/25 20:51 Urine Color Yellow 09/10/25 00:46 Urine Appearance Clear (Clear) 09/10/25 00:46 Urine pH 7.0 (4.5-7.5) 09/10/25 00:46 Ur Specific [place] 1.013 (1.000-1.030) 09/10/25 00:46 Urine Protein Trace (Negative) H 09/10/25 00:46 Urine Glucose (UA) Negative (Negative) 09/10/25 00:46 Urine Ketones Negative (Negative) 09/10/25 00:46 Urine Blood 3+ (Negative) H 09/10/25 00:46 Urine Nitrite Negative (Negative) 09/10/25 00:46 Urine Bilirubin Negative (Negative) 09/10/25 00:46 Urine Urobilinogen Negative (Negative) 09/10/25 00:46 Ur Leukocyte Esterase 1+ (Negative) H 09/10/25 00:46 Urine WBC (Auto) 6-10 /hpf (0-5) H 09/10/25 00:46 Urine RBC (Auto) >20 /hpf (0-2) H 09/10/25 00:46 U Hyaline Cast (Auto) 0-2 /lpf (0-2) 09/10/25 00:46 U Epithel Cells (Auto) 0-2 /hpf (0-2) 09/10/25 00:46 Urine Bacteria (Auto) None Seen (None Seen) 09/10/25 00:46 Urine Test Negative (Negative) 09/09/25 Unknown Urine Comment 09/10/25 00:46 Impressions Abdomen/Pelvis CT 09/09/25 20:19 Exam(s): CT ABDOMEN + PELVIS Without Contrast EXAM: CT Abdomen and Pelvis Without Intravenous Contrast CLINICAL HISTORY: Reason for exam: flank pain. TECHNIQUE: Axial computed tomography images of the abdomen and pelvis without intravenous contrast. CTDI is 27.44 mGy and DLP is 1174.04 mGy-cm. Automated exposure control was utilized for the study. A dose lowering technique was utilized adhering to the principles of ALARA. COMPARISON: CT September 21, 2018 FINDINGS: ABDOMEN: Liver: Unremarkable. Gallbladder and bile ducts: Unremarkable. Pancreas: Unremarkable. Spleen: Unremarkable. Adrenals: Unremarkable. Kidneys and ureters: Stone at the left UPJ measuring 4 mm causing mild left-sided hydronephrosis. Multiple nephrolithiasis in the kidneys bilaterally. Stomach and bowel: Unremarkable. PELVIS: Appendix: No findings to suggest acute appendicitis. Bladder: Unremarkable. Reproductive: IUD within the uterus. ABDOMEN and PELVIS: Intraperitoneal space: Unremarkable. No free air. No significant fluid collection. Bones/joints: No acute fracture. Soft tissues: Unremarkable. Vasculature: Unremarkable. Lymph nodes: Unremarkable. IMPRESSION: Stone at the left UPJ measuring 4 mm causing mild left-sided hydronephrosis. Electronically signed by: Lennox Perez MD 09/09/25 21:08 PM Retrograde Pyelogram 09/11/25 00:00 FL retrograde includes kub CLINICAL HISTORY: STENT;/RETROGRADE COMPARISON STUDY: None FLUOROSCOPY TIME: 7 seconds FLUOROSCOPY IMAGES: 4 EXPOSURE DOSE: 3.5 mGy FINDINGS: Fluoroscopy was provided for urologic procedure. IMPRESSION: Intraoperative fluoroscopy. ACT 112: Negative or not required by law. Electronically signed by: Jesus Lujan M.D. 09/12/2025 8:14 AM Hospital Course (1) Renal colic on left side: Left renal colic Patient presenting from home for evaluation of left flank pain CT scan showing stone at the left UPJ measuring 4 mm causing mild left-sided hydronephrosis Renal function stable (creat 0.7 -> 0.6), afebrile, no leukocytosis UA not suggestive of infection History of nephrolithiasis with calcium oxalate stones and was on hydrochlorothiazide but currently not taking Urology consulted s/p cystoscopy and left ureteral stent placement on 09/[address] Terry Continue Flomax Follow up with urology for stent removal Mild intermittent asthma No signs of acute exacerbation Continue home inhalers and meds Depression Continue home medications Total Time Total Time Spent Total Time Spent (In Minutes): 40 Discharge Plan Discharge Items Patient Disposition: Home - Self-Care Reason For Visit: Left flank pain Discharge Diagnosis: Kidney Stone Condition on Discharge: Good Activity: Resume your previous activity Non-emergency contact: Primary Care Provider and Urologist Call non-emergency contact if: you have any medication questions, your symptoms worsen, your pain is not controlled and you have a fever Follow-up/Referrals: Eduardo Terry MD [Physician] - Munir Nunez MD [Primary Care Provider] - 09/17/25 9:00 am (Date & Time 09/17/2025 9:00 AM Provider: vSeta Terry PA-C [facility] [place] ) Diet: Regular Addtl Attending Provider Instructions: You presented to the hospital for evaluation of left flank pain. You are found to have a kidney stone. You were evaluated by urology and underwent cystoscopy and left ureteral stent placement on 09/11. You were started on Flomax to help pass the kidney stone - this also should help with stent discomfort. See discharge instructions from urology as below. MEDICATION CHANGES: START taking Flomax (tamsulosin) 0.4mg daily Addtl Solid Waste Manager Provider Instructions: The surgery you had was ureteral stent placement. If you are having discomfort from your stent, it is ok to take tylenol alternating with ibuprofen. You can also take AZO, which can be purchased over -the-counter at the drugstore. Be aware this turns your urine a bright orange color. If you are prescribed a stronger medication you can take this according to instructions on the label. The stent will need to be removed. If you still have a kidney stone in place, we will make sure this is treated prior to stent removal. As long as the stent is in place, you may see some blood in the urine. You may have pain in your side when you urinate. The urology office will call you within a couple days of discharge to coordinate surgery to remove the stone. If you have not heard from us after 2 days, or if you are having any other concerns related to the stone, you can call the office at [phone]: Pending Studies at Discharge: No Stand-Alone Forms: My [facility] [address], Smoking Cessation Medications and DC Order Prescriptions: New tamsulosin 0.4 mg Capsule 0.4 mg PO QAM 30 Days Qty: 30 0RF Continued fluticasone propionate 50 mcg/actuation blister with device 1 inh INHALATION BID trazodone 50 mg tablet 25 mg PO HS PRN (Reason: Insomnia) cetirizine [Zyrtec] 10 mg Tablet 10 mg PO DAILY montelukast 10 mg tablet 10 mg PO DAILY escitalopram oxalate 20 mg tablet 20 mg PO DAILY bupropion HCl 300 mg tablet extended release 24 hr 300 mg PO DAILY Discharge Orders: Discharge Order (Routine); Ordered 09/12/25 Ordered By: Mariya Parker Admission Data Admit Date/Time: 09/10/25 00:52 Attending Provider: Jerome Persaud Admit Provider: Vishnu Nesbitt Primary Care Provider: Munir Nunez Other Providers: Vishnu Nesbitt; Guanaco Viera; Mariya Dejesus; Adrian Jorgensen; Kathleen Diez; Elvi Tran; Eduardo Terry; Debbi Fregoso; Abhishek Canales; Ana Campuzano; Jasson Lomas; Polo Whitney Other Interventions: Discharge Summary Assessment (RN) Last Done: 09/12/25 13:17
== END 2025-09-12 14:11 | disposition home or self-care (01) ==
LOC: ED 20:02 → 3E 09-10 00:52 → SUATTDRO 09-10 00:52 → INTOOBSV 09-10 00:52 → 3E 09-10 02:11